=== PATIENT | female | born 1970 | race Caucasian/White ===

== ENCOUNTER 2017-02-06 11:25 | Emergency (ER) | payer OTHER ==
[~2017-02-06] VITALS: Ht 165.1 cm; Wt 135.2 kg
[~2017-02-06 11:25] MED LIST: ADVAIR 250-501 EACH INH; DULOXETINE HCL60 MG PO; GUAIFENESIN AC473 ML PO; LEFLUNOMIDE20 MG PO; PREDNISONE10 MG PO; VENTOLIN HFA18 GM INH; ZITHROMAX250 MG PO
[2017-02-06] MEDS ORDERED: CLONAZEPAM0.5 MG PO (11:44)
[2017-02-06] MEDS ORDERED: LOMAIRA8 MG PO (11:45)
== END 2017-02-06 13:25 | disposition home or self-care (01) ==
LOC: ED 11:25
DX: F41.9 Anxiety disorder, unspecified (principal); J45.909 Unspecified asthma, uncomplicated; Z90.89 Acquired absence of other organs; Z88.2 Allergy status to sulfonamides; Z88.5 Allergy status to narcotic agent; Z88.6 Allergy status to analgesic agent; Z79.899 Other long term (current) drug therapy
CPT/HCPCS: 80053; 80176; 81001; 85025; 99283; G0480

== ENCOUNTER 2018-07-16 18:13 | Emergency (ER) | payer OTHER ==
[~2018-07-16] VITALS: Ht 172.7 cm; Wt 140.6 kg
[~2018-07-16 18:13] MED LIST changes: +CLONAZEPAM0.5 MG PO; +LOMAIRA8 MG PO
[2018-07-16] MEDS ORDERED: ULTRAM50 MG PO (18:44)
[2018-07-16] MEDS ORDERED: PREDNISONE20 MG PO (18:47)
--- NOTE | 2018-07-17 12:20 | EKG ---
[facility] [address] [place], [place] [address] Signed Normal sinus rhythm Normal ECG Confirmed by TAMIKA CORDON DO ([id number]) on 07/17/2018 12:19:55 PM Electronically Signed By: TAMIKA CORDON DO 07/17/18 1220 PATIENT NAME: JAYRO QUEZADA Electrocardiogram DATE OF : 74 PHYSICIAN: TAMIKA CORDON DO REPORT #: [id number] REPORT IS CONFIDENTIAL AND NOT TO BE RELEASED WITHOUT AUTHORIZATION
== END 2018-07-16 21:40 | disposition home or self-care (01) ==
LOC: ED 18:13
DX: J45.901 Unspecified asthma with (acute) exacerbation (principal); B34.9 Viral infection, unspecified; M06.9 Rheumatoid arthritis, unspecified; Z88.2 Allergy status to sulfonamides; Z88.5 Allergy status to narcotic agent; Z88.6 Allergy status to analgesic agent; Z79.52 Long term (current) use of systemic steroids; Z79.899 Other long term (current) drug therapy; E66.9 Obesity, unspecified
CPT/HCPCS: 71045; 80053; 83735; 83880; 84484; 85025; 87502; 93005; 93010; 94640; 96374; 99285-25; J2930

== ENCOUNTER 2019-05-05 07:51 | Emergency (ER) | payer OTHER ==
[~2019-05-05] VITALS: Ht 172.7 cm; Wt 140.6 kg
[~2019-05-05 07:51] MED LIST changes: +PREDNISONE20 MG PO; +ULTRAM50 MG PO
--- OUTSIDE RECORDS SUMMARY | 2019-05-05 07:54 | XMS ---
PreManage Notification: JAYRO QUEZADA Security Crime Victim Specialist Events No recent Security Events currently on file [facility] There are no care providers on record at this time. [facility] has no Care Guidelines for this patient. [facility] VISIT COUNT (12 MO.) 2 [facility] TOTAL 2 NOTE: Visits indicate total known visits. ED/UCC VISIT TRACKING (12 MO.) 05/05/2019 07:52 [facility] [place] TYPE: Emergency COMPLAINT: - LEFT SIDED FACE TINGLING/SWELLING 07/16/2018 18:[address] 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
[2019-05-05] MEDS ORDERED: LEXAPRO20 MG PO (08:02)
[2019-05-05] MEDS ORDERED: ADVAIR 250-501 EACH INH (08:02)
[2019-05-05] MEDS ORDERED: VENTOLIN HFA18 GM ×2 (08:02)
[2019-05-05] MEDS ORDERED: WELLBUTRIN XL150 MG PO (08:03)
[2019-05-05] MEDS ORDERED: ACTEMRA80 MG/4 ML (08:03)
[2019-05-05] MEDS ORDERED: PREDNISONE20 MG PO (08:11)
== END 2019-05-05 08:29 | disposition home or self-care (01) ==
LOC: ED 07:51
DX: T78.1XXA Other adverse food reactions, not elsewhere classified, initial encounter (principal); R21 Rash and other nonspecific skin eruption; J45.909 Unspecified asthma, uncomplicated; Z88.2 Allergy status to sulfonamides; Z88.5 Allergy status to narcotic agent; Z88.6 Allergy status to analgesic agent; Z91.018 Allergy to other foods; Z79.899 Other long term (current) drug therapy
CPT/HCPCS: 99283; J7512; Q0163

== ENCOUNTER 2019-05-07 07:23 | Emergency (ER) | payer OTHER ==
[~2019-05-07] VITALS: Ht 172.7 cm; Wt 140.6 kg
--- OUTSIDE RECORDS SUMMARY | ~2019-05-07 | XMS | Encounter Summary ---
Demographics + + + | Address | [address] | | | [place] [address] | + + + | Home Phone | | + + + | Preferred Language | Unknown | + + + | Marital Status | | + + + | Anabaptist Affiliation | [id number] | + + + | Race | Unknown | + + + | Ethnic Group | Unknown | + + + Author + + + | Author | [facility] | | | and [place] | + + + | Organization | [facility] | | | and [place] | + + + | Address | Unknown | + + + | Phone | Unavailable | + + + Support + + +---------+ + | Name | Relationship | Address | Phone | + + +---------+ + | Apollo Howard | ECON | Unknown | | + + +---------+ + Care Team Providers + +------+ + | Care Research Associate Molecular Biology Name | Role | Phone | + +------+ + | Laisha Quarles NP | PCP | | + +------+ + Encounter Details +--------+ + + + + | Date | Type | Department | Care Team | Description | +--------+ + + + + | 01/22/ | Orders Only | [facility] | Provider, | | | 2018 | | [facility] GENER[facility] OP | [address] | | | | | [address] | [place] | | | | | [address] [place], [place] | [place] [address] | | | | | [address] | | | | | | [phone] | | | +--------+ + + + + Social History + +-------+ +--------+------+ | Tobacco Use | Types | Packs/Day | Years | Date | | | | | Used | | + +-------+ +--------+------+ | Never Smoker | | | | | + +-------+ +--------+------+ + +---+---+---+ | Smokeless Tobacco: | | | | | Never Used | | | | + +---+---+---+ + + +---------+ + | Alcohol Use | Drinks/Week | oz/Week | Comments | + + +---------+ + | Yes | | | 4 times a month | + + +---------+ + + + + | Sex Assigned at | Date Recorded | | | | + + + | Not on file | | + + + + + + + | Job Start Date | Occupation | Industry | + + + + | Not on file | Not on file | Not on file | + + + + + + + + | Travel History | Travel Start | Travel End | + + + + + + | No recent travel history available. | + + documented as of this encounter Plan of Treatment +--------+ + + + + | Date | Type | Specialty | Care Team | Description | +--------+ + + + + | 05/10/ | Clinical | Rheumatology | | | | 2019 | Support | | | | +--------+ + + + + | 05/31/ | Office | Rheumatology | [facility] | | | 2018 | Visit | | BHUM[facility]A Ellis [address] | | | | | [address] | | | | | | [place] [address] | | | | | | [phone] | | | | | | | | +--------+ + + + + | 05/31/ | Clinical | Rheumatology | | | | 2018 | Support | | | | +--------+ + + + + documented as of this encounter Visit Diagnoses Not on filedocumented in this encounter"
--- OUTSIDE RECORDS SUMMARY | ~2019-05-07 | XMS | Encounter Summary ---
Demographics + + + | Address | [address] | | | [place] [address] | + + + | Home Phone | | + + + | Preferred Language | Unknown | + + + | Marital Status | | + + + | Yazidism Affiliation | 1041 | + + + | Race | Unknown | + + + | Ethnic Group | Unknown | + + + Author + + + | Author | [facility] | | | and [place] | + + + | Organization | [facility] | | | and [place] [...] Team Providers + +------+ + | Care Household Appliances Salesperson Name | Role | Phone | + +------+ + PCP | Unavailable | + +------+ + Encounter Details +--------+ + + + + | Date | Type | Department | Care Team | Description | +--------+ + + + + | 12/28/ | Hospital | [facility] | Tierney Owusu MD | | | 2007 - | Encounter | [facility] | [address] | | | | | MEDICAL ONCOLOGY | [place] [address] | | | 01/03/ | | [address] | [phone] | | | 2007 | | [place], [place] | | | | | | [address] | Shanti Parra | | | | | [phone] | | | +--------+ + + + + Social History + +-------+ +--------+------+ | Tobacco Use | Types | Packs/Day | Years | Date | | | | | Used | | + +-------+ +--------+------+ | Never Assessed | | | | | + +-------+ +--------+------+ + + + | Sex Assigned at [...] + + documented as of this encounter Discharge Summaries Saleem Velasco - 05/02/2013 3:07 PM PSTPATIENT NAME: Jayro Beckford Krishna Attending to Sign: Tierney Llamas MD DATE OF ADMISSION: 12/29/2007 AGE/SEX: 37/F DATE OF DISCHAR GE: 01/04/2008 : 1970 DISCHARGE DIAGNOSES: 1. Skin rash. This patient's skin rash is likely the result of a severe drug allergy i n which the patient began to have a perhaps leukemoid reaction. This masqueraded as a poss ible lymphoma versus leukemia. However, extensive further tests, the body of evidence is way fficient to conclude that this is just reactionary. However, followup is recommended to t he patient in order to reassure that this condition is indeed nonmalignant. 2. Staph. aureus bacteremia. This is diagnosed from blood culture. However, evidence o f the degree to which this is present is minimal thus far. The patient had a negative echo which did not show any vegetations on the heart. 3. Rheumatoid arthritis. 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 4. Anxiety and prednisone induced psychosis. This patient was described to be psychoti c while on prednisone. The prednisone was prescribed in response to the patient's severe r gina. DISCHARGE MEDICATIONS: 1. Prednisone 40 mg p.o. daily for days 1 through 7 after discharge. 2. Prednisone 2 0 mg p.o. daily for days 8 through 14 after discharge. 3. Prednisone 20 mg p.o. daily fo r days 15 through 21 and then stop the prednisone. 4. Cymbalta 20 mg one tablet by mouth daily for 30 days with 1 refill. 5. Hydrocerin cream, to be applied to the skin where the rash is present, as needed 6. Desonide 0.05%, topical cream, to be applied twice a day 7. Mupirocin 2% ointment or Bactroban applied twice a day to the affected skin 8. Triamcinolone 0.1% cream, topical cream, applied twice a day 9. Lorazepam 1 mg by mouth twice a day for up to 3 weeks 10. Advair 25 /Fluticasone salmeterol 250/50 one inh alation or one puff daily 11. Zyrtec or cetirizine 5 mg by mouth twice a day. 12. Cefazolin 2 gram IV q. 8 hours times eight days. HOSPITAL COURSE: The patient was transferred from [place], [place], on the December,. She had presented to [facility] in [place] two days prior to admission at [facility], admitted from the emergency dept. there into the hospitalist service for a se mak rash. The rash began one week prior to admission [facility] . It had initially subsi ded slightly. She had stated that she was informed to discontinue use of sulfadiazine and Plaquenil, whi ch she took for rheumatoid arthritis one week prior to admission at [facility]. However, t he patient did not seem to have JAYRO BECKFORD [id number] 01/04/08 DIS IN [id number] DISCHARGE SUMMARY Saleem PEREZ R [facility] MD Ganesh Taylor THIS REPORT IS CONFIDENTIAL AND NOT TO BE RELEASED WITHOUT PROPER AUTHORIZATION. [facility] significant improvement of the rash. Initially she was seen in Emergency room on the week end prior to admission to [facility], at which time she was given some fluid and then sen t home. However, three days later she ended up at the emergency room for the same problem with the rash. However, the rash was getting much worse. She initially described the kylie h as starting on the face and then spreading somewhat inferiorly. She had some severe facia l swelling, closing part of her eyes and around her neck being significantly swollen. On admission to [facility] a number of tests had been drawn and this patient began to have what looked like a leukemic picture. She had a significantly elevated white blood cell co unt into the 30 thousand range. She had abnormal smudge cells on peripheral smear, and a hi gh C reactive protein of 136 and an elevated erythrocyte sedimentation rate also in the 30 s initially. She was initially given fluid hydration and a number of medicines were discon tinued. The patient did not appear to do very well while at [place]. She was subseque ntly transferred to [place] due to the availability of specialists. Upon arrival at [facility] on the , the patient had some mild respirat ory distress and needed about two liters of nasal cannula O2. She was tachycardic in the 1 30s and was febrile with a temperature of about 101.7. A number of consults were called an d were available to se the patient that day or the following day. It was unclear exactly w hat the problem was. However, we did feel that it would have been best for the patient to discontinue all medications at that time, including typical p.r.n. medications. Patient d id not appear to have much response with that. However, the following day, after visiting with the ager operator it was recommended that the patient be started on a 60 mg of oral p rednisone and that this could simply be just a leukemoid reaction. The patient seemed to have a slight improvement over the next day. Bone marrow biopsy was obtained and it was initially read as being, based upon a combination of a flow cytometry and microscopy as, likely a neoplastic process. However, at the time a number of auto antibodies were pending. The patient was initially informed that she had a n underlying malignancy and it would probably need to undergo chemotherapy. The patient was obviously devastated by hearing the news and preparations for chemotherapy were initially done. After further tests and after a PET CT revealed numerous lymph nodes , it became clear that lymph node biopsy would perhaps be more conclusive, as it was believ ed that this could also be just a reactionary state. Due to the patient's body habitus a nd a combination of edema, it became impossible for surgeons to access the patient's lymph nodes. It was therefore concluded that lymph node biopsy would be unable to add much to t his situation. JAYRO BECKFORD [id number] 01/04/08 DIS IN [id number] DISCHARGE SUMMARY Saleem Ansari [facility] Tierney Owusu MD N THIS REPORT IS CONFIDENTIAL AND NOT TO BE RELEASED WITHOUT PROPER AUTHORIZATION. [facility] Further surgical pathology from the patient's bone marrow biopsy showed that the process m ay not have been malignant, based upon the fact that this was a polyclonal and due to the fact that se rum protein electrophoresis did not show a monoclonal increase in immunoglobulin. The diag nosis from the bone marrow study said, "it was a multiple granuloma with plasmocytosis prob ably reactive, peripheral circulating plasma cells that were consistent with a reactive pro cess." After receiving this information, plans for chemotherapy were appropriately stoppe d. The patient was quite happy about the news. However, she was significantly distraught abo ut the fact that she had originally been informed and then as it turned out, misinformed ab out her health. Upon discharge the following day, the patient was doing quite well on the prednisone after having it for 6 days. The rash had significantly subsided with only minimal areas in the legs and some papules on the extensor aspect of her forearms being present. For the most p art her discoloration had resolved over her face and her abdomen. However, due to the fact that the patient had been on such a high dose of prednisone, we are recommending a steroi d taper over the next three weeks. FOLLOWUP: The patient is to follow up in three weeks with Dr. Chandler with rheumatology And in three weeks with Dr. Hernandez with heme-oncology. The patient did receive a skin biops y; however, the suture was removed on the day of discharge without any apparent complicatio ns. 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 We do not believe that this necessarily requires an immediate follow up as the patient is being tapered from her steroids. However, should this return, we do recommend seeing a ager operator promptly. As a result of the patient's blood cultures, which returned a Staph aureus we have sent th e patient home on Cefazolin at 2 gram IV every 8 hours. Patient had completed a 6-day cours e of Cefazolin treatment while at the hospital and she will need to receive another 8 days of treatment when she returns to her home city. The patient was allowed to leave [facility] with a PICC line placed in the right arm. PICC line placement was confirmed with a est x-ray the prior day. Saleem Velasco MD, R1 JAYRO BECKFORD [id number] 01/04/08 DIS IN [id number] [id number] DISCHARGE SUMMARY Saleem gusman ES R [facility] Tierney Owusu MD N THIS REPORT IS CONFIDENTIAL AND NOT TO BE RELEASED WITHOUT PROPER AUTHORIZATION. [facility] Tierney Owusu MD P NQ/raw #[id number] cc: MD Alistair Lee, MD Jeff Bañuelos, MD Saleem Velasco MD,R1 Tierney Llamas MD Digitally authenticated 01/25/08 1700 Saleem Velasco JAYRO BECKFORD [id number] 01/04/08 DIS IN [id number] DISCHARGE SUMMARY Saleem Brentemperatriz gusman R [facility] Tierney Owusu MD N THIS REPORT IS CONFIDENTIAL AND NOT TO BE RELEASED WITHOUT PROPER AUTHORIZATION.Electronica lly signed by Tin, Lidia Conversion at 05/04/2013 1:12 AM PSTdocumented in this enc ounter Plan of Treatment +--------+ + + + + | Date | Type | Specialty | Care Team | Description | +--------+ + + + + | 05/10/ | Clinical | Rheumatology | | | | 2019 | Support | | | | +--------+ + + + + | 05/31/ | Office | Rheumatology | Chel Henry | | | 2019 | Visit | | BHUMIKA Ellis [address] | | | | | | [facility] | | | | | | [place] [address] | | | | | | [phone] | | | | | | | | +--------+ + + + + | 05/31/ | Clinical | Rheumatology | | | | 2019 | Support | | | | +--------+ + + + + documented as of this encounter Procedures + +--------+ + + + | Procedure Name | Priori | Date/Time | Associated Diagnosis | Comments | | | ty | | | | + +--------+ + + + | XR CHEST PA AND | | 01/03/2008 | | Results for this | | LATERAL | | 4:58 PM | | procedure are in the | | | | PDT | | results section. | + +--------+ + + + | CYTOGENETICS | Routin | 12/31/2007 | | Results for this | | SPECIMEN | e | 11:45 AM | | procedure are in the | | | | PDT | | results section. | + +--------+ + + + | HEMATOPATHOLOGY EVAL | Routin | 12/31/2007 | | Results for this | | [facility] | e | 11:45 AM | | procedure are in the | | | | PDT | | results section. | + +--------+ + + + | XR CHEST 2 VIEWS | | 12/29/2007 | | Results for this | | | | 8:15 PM | | procedure are in the | | | | PDT | | results section. | + +--------+ + + + | SURGICAL PATHOLOGY | Routin | 12/29/2007 | | Results for this | | EXAM | e | 12:00 AM | | procedure are in the | | | | PDT | | results section. | + +--------+ + + + documented in this encounter Results XR Chest PA and Lateral (01/03/2008 4:58 PM PDT) + + | Specimen | + + | | + + + + + | Narrative | Performed At | + + + | Exam Performed Location: [facility] DUAL | MISCELANIOUS | | ENERGY CHEST WITH PA AND LATERAL VIEWS CLINICAL INFORMATION: PICC | LAB | | line placement. COMPARISON: 12/29/2007. FINDINGS: There is | | | a right-sided PICC catheter present. The tip of the catheter is not | | | seen beyond the mid superior vena cava. This has not grossly | | | changed since the previous study. The mediastinal contours remain | | | normal. Linear areas of atelectasis are noted within the medial | | | aspect of both lung bases and peripheral aspect of the left mid lung. | | | No pleural effusion or pneumothorax is present. IMPRESSION: | | | 1. Right-sided PICC catheter with its tip at least in the mid | | | superior vena cava. The distal aspect of the catheter is not | | | definitely visualized but appears grossly unchanged in position. 2. | | | Bibasilar areas of atelectasis. S: SQ | | + + + + + | Procedure Note | + + | Tin, Rad Conversion - 04/21/2013 1:48 PM PDT Exam [facility]formed [facility] AND LATERAL VIEWSCLINICAL INFORMATION:PICC | | line placement.COMPARISON:12/29/2007.FINDINGS:There is a right-sided PICC catheter | | present. The tip of the catheteris not seen beyond the mid superior vena cava. This | | has not grosslychanged since the previous study. The mediastinal contours remainnormal. | | Linear areas of atelectasis are noted within the medialaspect of both lung bases and | | peripheral aspect of the left mid lung.No pleural effusion or pneumothorax is | | present.IMPRESSION:1. Right-sided PICC catheter with its tip at least in the | | midsuperior vena cava. The distal aspect of the catheter is notdefinitely visualized | | but appears grossly unchanged in position.2. Bibasilar areas of atelectasis.S: SQ | |FINDINGS: | |There is a right-sided PICC catheter present. The tip of the catheter | |is not seen beyond the mid superior vena cava. This has not grossly | |changed since the previous study. The mediastinal contours remain | |normal. Linear areas of atelectasis are noted within the medial | |aspect of both lung bases and peripheral aspect of the left mid lung. | |No pleural effusion or pneumothorax is present. | | | |IMPRESSION: | | | |1. Right-sided PICC catheter with its tip at least in the mid | |superior vena cava. The distal aspect of the catheter is not | |definitely visualized but appears grossly unchanged in position. | |2. Bibasilar areas of atelectasis. | | | | | |S: SQ | + + + +---------+ + + | Performing | Address | City/State[facility] | Phone Number | | Organization | | | | + +---------+ + + | [facility] | | | [phone] | + +---------+ + + | MISCELANIOUS LAB | | | [phone] | + +---------+ + + Cytogenetics Specimen (12/31/2007 11:45 AM PDT) + + | Specimen | + + | | + + + + + | Narrative | Performed At | + + + | CYTOGENETICS REPORT Case #: [id number] Date | [place] [facility] | | Taken: 12/31/2007 Date Received: 01/01/2008 Physician: ALBARO HERNANDEZ | | | Specimen Type: Bone Marrow Aspirate Clinical Indication: r/o | | | Lymphoma Result: 46,XX[20] Normal Female Karyotype | | | Interpretation: No clonal cytogenetic abnormalities were detected | | | in cells from short term pha/IL-2 stimulated and unstimulated bone | | | marrow aspirate cultures at the resolution obtained. | | | Cytogenetic Analysis Summary: Number of Cells Analyzed: 20 | | | Number of Cultures used for Analysis: 2 Number | | | of Cells Karyotyped at Microscope: 14 Number of Hard | | | Copy Karyotypes: 6 Extra Cells examined/scored: none | | | Banding Level: 350-450 | | | Banding Method: GTW/G Sy Ruiz M.D., [facility] | | | 01/09/2008 Electronic Signature [facility] Manny Coronado M.D., | | | Director [address] [place] [address] or | | | | | + + + + + + + + | Performing | Address | City/State/Zipcode | Phone Number | | Organization | | | | + + + + + | [facility] | [address] | [place] [address] | | | [facility] | | | | | [facility] | | | | + + + + + | [facility] | | | | + + + + + Hematopathology Batsheva COE (12/31/2007 11:45 AM PDT) + + | Specimen | + + | | + + + + + | Narrative | Performed At | + + + | HEMATOPATHOLOGY REPORT | [facility] | | Date Taken: 12/31/2007 Date Received: 12/31/2007 | | | Completed: 01/03/2008 Physician: ALBARO HERNANDEZ DIAGNOSIS: Bone | | | marrow study demonstrating multiple granulomata with plasmacytosis, | | | probably reactive; peripheral circulating plasma cells consistent | | | with a reactive process (see comment). 0 COMMENT: Both the | | | marrow and peripheral blood demonstrate a remarkable increase in the | | | percentage of plasma cells, but without morphologic findings that | | | allow a definitive diagnosis of a plasma cell neoplasm. This is | | | associated with flow cytometric studies which confirm the identity of | | | these cells as plasma cells, but again did not identify abnormal | | | antigen expression. Of note, cytoplasmic studies performed on the | | | peripheral blood demonstrate an appropriate mix of kappa and lambda | | | light chain in plasma cells. Also, serum protein electrophoresis | | | demonstrates only a polyclonal increase in immunoglobulin without | | | evidence of a monoclonal protein. The etiology of both the | | | granulomata and the circulating and marrow plasma cells is not clear | | | from the current study. Granulomata are relatively nonspecific and | | | may be seen with a variety of infectious processes as well as | | | autoimmune disorders. The remarkable plasmacytosis is also | | | unexplained but again may be seen with autoimmune phenomena. | | | Clinical correlation is required. Consideration of immunoglobulin | | | gene rearrangement studies or repeat evaluation if the process does | | | not resolve may be useful. But at this time, no findings are | | | present that allow a diagnosis of a neoplastic process. | | | Adama More Jr., MD PRIOR REPORTS: BIOPSY/CLOT | | | DESCRIPTION: The bone marrow biopsy measures approximately 20 mm in | | | length. Trabecular bone is present and appears normal. No | | | nonhematopoietic tumor cells are identified. Overall cellularity is | | | approximately 80%. Throughout the specimen are small granulomata | | | consisting of plump macrophages and occasional giant cells with a | | | lymphoplasmacytic association. Megakaryocytes are very prominent | | | within the specimen but appear normal morphologically without | | | clustering or abnormal forms. Myeloid cells demonstrate maturation | | | to mature polys. No lymphoid aggregates are seen. Plasma cells | | | are diffusely increased without large aggregates identified. The | | | accompanying clot section confirms the findings as described in the | | | biopsy. Stains for fungus and TB performed on both the clot and | | | biopsy are negative. Immunostains performed on both the clot | | | and biopsy demonstrate an increased number of CD138 positive plasma | | | cells as suggested by morphology and histology. No large | | | collections of plasma cells are identified; however, there are | | | multiple small aggregates present. No increase in CD79a or CD20 | | | positive B lymphocytes is identified. CD3 stains only scattered | | | individual cells. Stains for both kappa and lambda identify | | | staining of an approximately equal number of plasma cells within the | | | specimen. [facility] [address], [place] [id number] [phone]) | | | [phone] or Testing performed at: [place] | | | [facility] Manny Coronado M.D., | | | Director [address] [place] [address] [address] [place] [address] Phone: | | | | | + + + + + + + + | Performing | Address | City/State/[facility] | Phone Number | | Organization | | | | + + + + + | [facility] | [address] | [place] [address] | | | [facility] | | | | | [facility] | | | | + + + + + | [facility] | | | | + + + + + XR Chest 2 VW (12/29/2007 8:15 PM PDT) + + | Specimen | + + | | + + + + + | Narrative | Performed At | + + + | Exam Performed Location: [facility] AND | MISCELANIOUS | | LATERAL CHEST CLINICAL INFORMATION: Fever and rash. | LAB | | COMPARISON: None. FINDINGS: The lungs are well expanded. There | | | is a right-sided PICC line with the tip difficult to see. The | | | heart size is normal. Streaky opacity in the left lung base suggest | | | atelectasis. No focal consolidation. No pleural effusion or | | | pneumothorax. IMPRESSION: Minimal left basilar atelectasis. No | | | focal consolidation. S: SQ | | + + + + + | Procedure Note | + + | Tin, Rad Conversion - 04/21/2013 1:53 PM PDT Exam Performed Location: [facility] | | at [facility] AND LATERAL CHESTCLINICAL INFORMATION:Fever and | | rash.COMPARISON:None.FINDINGS:The lungs are well expanded. There is a right-sided PICC | | line withthe tip difficult to see. The heart size is normal. Streaky opacityin the left | | lung base suggest atelectasis. No focal consolidation.No pleural effusion or | | pneumothorax.IMPRESSION:Minimal left basilar atelectasis. No focal consolidation.S: SQ | | | |COMPARISON: | |None. | | | |FINDINGS: | |The lungs are well expanded. There is a right-sided PICC line with | |the tip difficult to see. The heart size is normal. Streaky opacity | |in the left lung base suggest atelectasis. No focal consolidation. | |No pleural effusion or pneumothorax. | | | |IMPRESSION: | |Minimal left basilar atelectasis. No focal consolidation. | | | | | |S: SQ | + + + +---------+ + + | Performing | Address | City/State/Zipcode | Phone Number | | Organization | | | | + +---------+ + + | [facility] | | | [phone] | + +---------+ + + | M[facility] LAB | | | [phone] | + +---------+ + + Surgical Pathology Exam (12/29/2007 12:00 AM PDT) + + | Specimen | + + | | + + + + + | Narrative | Performed At | + + + | SURGICAL PATHOLOGY REPORT | [facility] | | Date Taken: 12/29/2007 Date Received: 01/01/2008 | | | Completed: 01/02/2008 Physician: SHAVON STANLEY Copy to: MARK Ramirez | | | [place] DIAGNOSIS: Skin, right anterior thigh, punch biopsy: | | | Lichenoid dermatitis with lymphocytic vasculitis. See comment. 0 | | | COMMENT: The differential diagnosis includes pigmented purpuric | | | dermatosis, pityriasis lichenoides chronicus, viral or drug | | | reaction and less likely connective tissue disorder. There is no | | | evidence of papillary dermal edema for polymorphous light eruption, | | | however this may still be in the differential diagnosis. There is | | | no evidence of an acute vasculitis. Clinical correlation is | | | recommended. This case has been reviewed and dictated by | | | Mehdi, Board Certified Dermatopathologist. LUCAS Brown | | | MEHDI Electronic signature PRIOR REPORTS: [id number], | | | [id number] GROSS DESCRIPTION: The specimen labeled and designated | | | "Beckford, right anterior thigh" is received in formalin and consists of | | | a 0.4 cm in diameter biopsy of stern skin with the underlying tissue | | | extending to a 0.5 cm depth. The margins are identified with ink. The | | | specimen is bisected and submitted "A1". The Histology | | | requisition indicates "immunofluorescence studies to be requested", | | | however no specimen was received in Tom fixative, and only one | | | specimen was received in formalin. ([place]) [phone] [id number] | | | [facility] [address] [place] [address] or | | | Testing performed at: [facility] | | | [facility] Manny Coronado M.D., Director [facility] [address] | | [address] [place] [address] | | + + + + + + + + | Performing | Address | City/State[facility] | Phone Number | | Organization | | | | + + + + + | [facility] | [address] | [place] [address] | | | [facility] | | | | | LABORATORY | | | | + + + + + | [facility] | | | | + + + + + documented in this encounter Visit Diagnoses Not on filedocumented in this encounter
--- OUTSIDE RECORDS SUMMARY | ~2019-05-07 | XMS | Encounter Summary ---
Demographics + + + | Address | [address] | | | [place] [address] | + + + | Home Phone | | + + + | Preferred Language | Unknown | + + + | Marital Status | | + + + | Temple Affiliation | 1041 | + + + | Race | Unknown | + + + | Ethnic Group | Unknown | + + + Author + + + | Author | [facility] | | | and [place] | + + + | Organization | [facility] | | | and [...] Team Providers + +------+ + | Care Licensed Loan Officer Assistant Name | Role | Phone | + +------+ + | Laisha Quarles NP | PCP | | + +------+ + Encounter Details +--------+ + + + + | Date | Type | Department | Care Team | Description | +--------+ + + + + | 01/22/ | Orders Only | [facility] | Provider, | | | 2018 | | SYSTEM GENERIC OP | [address] | | | | | [address] | [place] | | | | | [address] [place], [place] | [place] [address] | | | | | [address] | | | | | | [phone] | | | +--------+ + + + [...] 2018 | Visit | | BHUMIKA Ellis [address] | | | | | | [place] | | | | | | [place] [address] | | | | | | [phone] | | | | | | | | +--------+ + + + + | 05/31/ | Clinical | Rheumatology | | | | 2018 | Support | | | | +--------+ + + + + documented as of this encounter Visit Diagnoses Not on filedocumented in this encounter"
--- OUTSIDE RECORDS SUMMARY | ~2019-05-07 | XMS | Encounter Summary ---
Demographics + + + | Address | [address] | | | [place] [address] | + + + | Home Phone | | + + + | Preferred Language | Unknown | + + + | Marital Status | | + + + | Buddhist Affiliation | 1041 | + + + | Race | Unknown | + + + | Ethnic Group | Unknown | + + + Author + + + | Author | [facility] | | | and [place] | + + + | Organization | [facility] | | | and [place] | [...] Team Providers + +------+ + | Care Print Production Manager Name | Role | Phone | + +------+ + PCP | Unavailable | + +------+ + Encounter Details +--------+ + + + + | Date | Type | Department | Care Team | Description | +--------+ + + + + | 01/12/ | Hospital | [facility] | [place], | | | 2007 | Encounter | MED CTR MED ONC | Davina Segura MD [address] | | | | | [address] [place] | [address] [place] | | | | | [place] [address] | [place] [address] | | | | | [phone] | [phone] | | | | | | | [...] | 05/31/ | Office | Rheumatology | Henry, Chel | | | 2019 | Visit | | BHUMIKA Ellis [address] | | | | | | [place] | | | | | | [place] [address] | | | | | | [phone] | | | | | | | | +--------+ + + + + | 05/31/ | Clinical | Rheumatology | | | | 2018 | Support | | | | +--------+ + + + + documented as of this encounter Visit Diagnoses Not on filedocumented in this encounter"
--- OUTSIDE RECORDS SUMMARY | ~2019-05-07 | XMS | Encounter Summary ---
Demographics + + + | Address | [address] | | | [place] [address] | + + + | Home Phone | | + + + | Preferred Language | Unknown | + + + | Marital Status | | + + + | Jew Affiliation | 1041 | + + + | Race | Unknown | + + + | Ethnic Group | Unknown | + + + Author + + + | Author | [facility] | | | and [place] | + + + | Organization | [facility] | | | [...] Team Providers + +------+ + | Care Funds Development Director Name | Role | Phone | + +------+ + | Laisha Quarles NP | PCP | | + +------+ + Reason for Visit +--------+ + | Reason | Comments | +--------+ + | Apnea | | +--------+ + Encounter Details +--------+---------+ + + + | Date | Type | Department | Care Team | Description | +--------+---------+ + + + | 08/19/ | Office | [facility] | Blair Guillen PA | ROMA on CPAP (Primary | | 2015 | Visit | SLEEP DISORDER [address] | [address] | Dx) | | | | [address] [place] | [place] | | | | | [place] [address] | [address] | | | | | [phone] | | | +--------+---------+ + + + Social History + +-------+ [...] + + documented as of this encounter Last Filed Vital Signs + + + + + | Vital Sign | Reading | Time Taken | Comments | + + + + + | Blood Pressure | 124/82 | 08/19/2014 3:21 PM | | | | | PST | | + + + + + | Pulse | 100 | 08/19/2014 3:21 PM | | | | | PST | | + + + + + | Temperature | - | - | | + + + + + | Respiratory Rate | 16 | 08/19/2014 3:21 PM | | | | | PST | | + + + + + | Oxygen Saturation | 95% | 08/19/2014 3:21 PM | | | | | PST | | + + + + + | Inhaled Oxygen | - | - | | | Concentration | | | | + + + + + | Weight | 137.9 kg (304 lb) | 08/19/2014 3:21 PM | | | | | PST | | + + + + + | Height | - | - | | + + + + + | Body Mass Index | 49.82 | 06/05/2014 10:51 AM | | | | | PST | | + + + + + documented in this encounter Progress Notes Sun Tiwari, Master of Arts - 08/19/2014 3:19 PM PSTFormatting of this note might be di fferent from the original. 08/19/14 [address] Depression Inventory-II Depression Score 7 - Minimal depression Insomnia Severity Index Insomnia Severity Index 8 [place] Sleepiness Scale Sitting and reading 1 Watching TV 2 Sitting, inactive in a public place (e.g. a theatre or a meeting) 1 As a passenger in a car for an hour without a break 2 Lying down to rest in the afternoon when circumstances permit 3 Sitting and talking to someone 0 Sitting quietly after a lunch without alcohol 1 In a car, while stopped for a few minutes in traffic 0 Total score 10 SF-36v2 Score PF 44.41 RP 29.91 BP 37.18 GH 25.76 VT 48.97 SF 35.03 RE 24.78 MH 35.93 PCS 38.49 MCS 33.34 Blair Antunez PA - 3:16 PM PST Subjective: Patient ID: Radha Heck is a 43 y.o. female. HPI last office visit was: 06/17/2014 date of split-night polysomnography: 06/11/2014 AHI: 108.5 RDI: 108.5 O2%: 67% with 35.5 minutes below 88% Machine type: ResMed AirSense 10 with nasal pillows obtained from: [employer] in [place] pressure: 12-20 cm 95%: 17.1 cm maximum: 19.0 cm Nights using CPAP: 64/64 % of nights >4 hours: 96% average usage (all nights): 7:45 average usage (nights used): 7:45 AHI: 2.4 Radha comes in for CPAP compliance. She continues to wear her CPAP on a nightly basis for t he duration of her sleep. She and her are both sleeping much better. She is sleepi ng less and feeling more rested. She no longer naps during the day and has more energy. Paola walsh has started exercising and has noticed a significant improvement in her stamina. She is w orking to lose weight and is hopeful this increase in energy will help her. Her only questi on is regarding her equipment. We discussed when she is able to replace each item. We also discussed the recommended cleaning schedule for her equipment. I have discussed the download and results of the paperwork in detail. She is unchanged or improved in nearly all categories, with no areas of concern. The download shows that her sl eep apnea is well controlled, with an AHI of 2.4. It also shows that her leaks are well con trolled. It shows that she is wearing her CPAP >4 hours for 96% of the nights during the 64 nights. Review of Systems Objective: Physical Exam Assessment: Problem #1: OBSTRUCTIVE SLEEP APNEA (327.23) This is well controlled with CPAP. Her CPAP compliance is going well. She is wearing her CPAP >4 hours for 96% of the nights during the last 64 nights. Plan: She is to continue with CPAP indefinitely. We have faxed a prescription to [facility] in [place] to convert her CPAP/BiPAP to purchase. I have recommended that she touch base with [facility] twice per year to ensure that her equipment is satisfactory. I will follow up again in 1 year, sooner prn. At that time we will reassess with all appro priate paperwork. Fifteen minutes were spent [id number], with the majority of time spent in counseling. Blair Guillen PA-C cc: JOHAN Chiu documented in this enco unter Plan of Treatment +--------+ + + + [...] 2018 | Visit | | BHUMIKA Ellis [address] | | | | | | [place] | | | | | | [place] [address] | | | | | | [phone] | | | | | | | | +--------+ + + + + | 05/31/ | Clinical | Rheumatology | | | | 2018 | Support | | | | +--------+ + + + + documented as of this encounter Visit Diagnoses + + | Diagnosis | + + | ROMA on CPAP - Primary Obstructive sleep apnea (adult) (pediatric) | + + documented in this encounter"
--- OUTSIDE RECORDS SUMMARY | ~2019-05-07 | XMS | Encounter Summary ---
Demographics + + + | Address | [address] | | | [place] [address] | + + + | Home Phone | | + + + | Preferred Language | Unknown | + + + | Marital Status | | + + + | Episcopal Affiliation | 1041 | + + + | Race | Unknown | + + + | Ethnic Group | Unknown | + + + Author + + + | Author | [facility] | | | and [place] | + + + | Organization | [facility] | | | and [place] [...] Team Providers + +------+ + | Care Estate Planning Counselor Name | Role | Phone | + +------+ + | Laisha Quarles NP | PCP | | + +------+ + Reason for Visit +--------+ + | Reason | Comments | +--------+ + | Other | sleep results | +--------+ + Encounter Details +--------+---------+ + + + | Date | Type | Department | Care Team | Description | +--------+---------+ + + + | 12/18/ | Office | [facility] | Davon Brunner | Low ferritin | | 2014 | Visit | SLEEP DISORDER [address] | (Primary Dx); ROMA | | | | [address] [place] | [address] [place] | (obstructive sleep | | | | [place] [address] | [place] [address] | apnea); Restless | | | | [phone] | [phone] | legs syndrome | | | | | | | +--------+---------+ + + + [...] + + + | Blood Pressure | 152/78 | 06/13/2014 2:34 PM | | | | | PST | | + + + + + | Pulse | 117 | 06/13/2014 2:34 PM | | | | | PST | | + + + + + | Temperature | - | - | | + + + + + | Respiratory Rate | 18 | 06/13/2014 2:34 PM | | | | | PST | | + + + + + | Oxygen Saturation | 95% | 06/13/2014 2:34 PM | | | | | PST | | + + + + + | Inhaled Oxygen | - | - | | | Concentration | | | | + + + + + | Weight | 136.9 kg (301 lb | 06/13/2014 2:34 PM | | | | 11.2 oz) | PST | | + + + + + | Height | - | - | | + + + + + | Body Mass Index | 49.44 | 06/05/2014 10:51 AM | | | | | PST | | + + + + + documented in this encounter Patient Instructions Patient Instructions Davon Brunner Jr., MD - 06/13/2014 2:56 PM PSTFormatting of this n ote might be different from the original. What Are Snoring and Sleep Apnea? If you ve ever had a stuffed-up nose, you know the feeling of trying to breathe through a very narrow passageway. This is what happens in your throat when you snore. While you sleep , structures in your throat partially block your air passage, making the passage narrow and hard to breathe through. If the entire passage becomes blocked and you can t breathe at al l, you have sleep apnea. Snoring If your throat structures are too large or the muscles relax too much during sleep, the air passage may be partially blocked. As air from the nose or mouth passes around this blockage , the throat structures vibrate, causing the familiar sound of snoring. At times, this sound can be so loud that snorers wake up others, or even themselves, during the night. Snoring g ets worse as more and more of the air passage is blocked. Sleep Apnea If the structures completely block the throat, air can t flow to the lungs at all. This i s called apnea (meaning no breathing ). Since the lungs aren t getting fresh air, the brain tells the body to wake up just enough to tighten the muscles and unblock the air pass age. With a loud gasp, breathing begins again. This process may be repeated over and over ag ain throughout the night, making your sleep fragmented with a senior business intelligence analyst stage of sleep. Even t bubba you do not remember waking up many times during the night to a senior business intelligence analyst sleep, you feel tired the next day. The lack of sleep and fresh air can also strain your lungs, heart, and other organs, leading to problems such as high blood pressure, heart attack, or stroke. Air may not be able to move freely past a deviated septum or swollen turbinates. Problems in the Nose and Jaw Problems in the structure of the nose may obstruct breathing. A crooked (deviated) septum o r swollen turbinates can make snoring worse or lead to apnea. Also, a receding jaw may make the tongue sit too far back, so it s more likely to block the airway when you re asleep. [id number] [place] [address]. All righ ts reserved. This information is not intended as a substitute for professional medical care. Always follow your healthcare professional's instructions. documented in this encounter Progress Notes Davon Brunner Jr., MD - 06/13/2014 2:40 PM PSTThe patient comes in for results of her s plit-night PSG. My interpretation of her sleep study, which I have reviewed with her, is as follows: Split-Night Polysomnogram/Positive Airway Pressure Titration Report on Radha Heck 1 08/12/2013 Clinical Information: Radha Heck is a 43 y.o. female who underwent nocturnal polyso mnography using a "Split-Night" Protocol on 06/11/2014 on referral from [facility] because of sleep fragmentation, fatigue, and possible Obstructive Sleep Apnea. 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 Technical Information: Please see technical data stored as Polysomnography under "Media" se ction in the [facility] EMR. Definitions (The AASM Manual for the Scoring of Sleep and Associated Events, Version 2.0; 2 012): Apnea:There is a drop in the peak signal excursion by 90% or greater of pre-event baseline using an oronasal thermal sensor (diagnostic study), PAP device flow (titration study), or a n alternative apnea sensor (diagnostic study); the duration of the 90% or greater drop in se nsor signal is 10 seconds or longer. Obstructive Apnea: Event associated with continued or increased inspiratory effort througho ut the entire period of absent airflow. Central Apnea: Event associated with absent inspiratory effort throughout the entire period of absent airflow. Mixed Apnea: Event associated with absent inspiratory effort in the initial portion of the event followed by resumption of inspiratory effort during the second portion of the event. Hypopnea: The peak signal excursions drop by 30% or more of pre-event baseline using nasal pressure (diagnostic study), PAP device flow (titration study), or an alternative hypopnea s ensor (diagnostic study). The duration of the 30% or greater drop in signal excursion must l ast for 10 seconds or longer. The event is associated with a 3% or greater oxygen desaturati on from pre-event baseline or the event is associated with an arousal. Respiratory Event Related Arousal: A sequence of breaths lasting 10 seconds or longer choco cterized by increasing respiratory effort or by flattening of the inspiratory portion of the nasal pressure (diagnostic study) or PAP device flow (titration study) waveform leading to arousal from sleep when the sequence of breaths does not meet criteria for an apnea or hypop duncan. The study was conducted in two parts. The first 183.6 minutes of study time was spent as a diagnostic study and the second 470.9 was spent with the patient undergoing positive airway titration. DIAGNOSTIC PORTION OF THE EVENING Sleep Architecture: Lights out was recorded at 2259 hundred hours on 06/11/2014 and lights on was recorded at 0954 hundred hours on 06/12/2014. The latency to sleep onset was normal a t 12 minutes. The patient slept for 131 minutes out of 183.6 minutes of diagnostic study paula e resulting an a sleep efficiency that was low at 71.4 %. The following were the percentages of the various sleep stages recorded during the diagnostic portion of the evening: N1 3.8%, N2 96.2%, N3 0%, and REM 0. Sleep was severely fragmented; the Arousal Index was 111.8 duri ng the diagnostic portion of the evening. Sleep in the following body positions were recorded during the diagnostic portion of the ev enin.3% left lateral decubitus, 14.1% right lateral decubitus, and 36.5% supine. Cardiopulmonary Monitoring: During the diagnostic portion of the evening, the heart rate av eraged in the 90's beats per minute. Moderate rate variability was noted. The rhythm was sin us tachycardia. During the diagnostic portion of the evening, there were 65 obstructive apneas, 0 mixed tenon machine operator eas, 0 central apneas, 172 hypopneas, and 0 Respiratory Effort Related Arousals (RERA's). Th e Respiratory Disturbance Index (RDI) was elevated at 108.5; the Apnea-Hypopnea Index was el evated at 108.5; the Apnea Index (AI) was elevated at 29.8. The respiratory events were not positional. The le oxygen saturation was 67% and the patient spent 35.5 minutes with an oxygen satur ation of less than 88%. ETCO2 was not elevated. The night technologist at this point appropriately made a diagnosis of Obstructive Sleep Ap duncan. The patient was awakened and positive airway pressure was instituted. TREATMENT PORTION OF THE EVENING: During the 470.9 of treatment time, the patient slept for 446.5 minutes for a sleep efficie ncy of 94.8 which was markedly better than the sleep efficiency seen during the diagnostic p ortion of the night. Sleep architecture showed marked improvement compared to the sleep arch itecture during the diagnostic portion of the evening. There was a huge "rebound" of REM sle ep. The patient was titrated to Positive Airway Pressure of 14cm which resulted in a AHI of 1.1 . ROMA was actually well controlled with CPAP above 10cm but light snoring persisted. Oxygen saturation improved on CPAP but did not entirely normalize. Limb Movement Monitoring: There were 310 Periodic Limb Movements of which 14 were associate d with arousals; the PLMS Arousal Index was normal at 1.5, when averaged for the entire even ing. The PLMS improved significantly with CPAP. Interpretation: This Split-Night Polysomnogram is abnormal secondary to: Severe Obstructive Sleep Apnea is diagnosed and was associated with severe and sustained ox ygen desaturation and severe sleep fragmentation. CPAP above 10cm controlled ROMA and dramatically improved sleep architecture. Oxygen saturat ion improved but did not completely normalize. Periodic Limb Movements were present but improved dramatically after the institution of CPA P. Suggestions: 1. The principles of sleep hygiene should be reviewed with the patient. 2. Auto CPAP 10-20 cm is advised. 3. Pulse oximetry should be checked after a couple of weeks of therapy. 4. A ferritin level should be checked. If the ferritin level is less than 50, iron suppleme ntation should be considered to raise the ferritin to above 50. This may help with PLMS. Onc e the ferritin level is above 50, pharmacologic therapy of PLMS/RLS should be considered if they are felt to be clinically significant. BP 152/78 | Pulse 117 | Resp 18 | Wt 136.85 kg (301 lb 11.2 oz) | SpO2 95% A: ROMA: The patient has clinically significant and very severe ROMA. I've discussed this wit h the patient again. I've discussed treatment options (weight loss, CPAP, Dental Appliance, surgery) again and I am advising a trial of CPAP therapy. Typically dental appliances are no t very effective for severe ROMA. Weight loss is encouraged which will help but CPAP should b e started.. The mechanisms of action of CPAP in treating ROMA were discussed in detail with t he patient. I've discussed desensitization techniques as well as some imagery techniques anitha t can be helpful. I've discussed the use of heated humidity. And I've discussed our PAP Comp liance Clinic. RLS/PLMS: Note that the ferritin is low normal but less than 50. I am advising FeS04 P: Resmed AirSense 10 autoset CPAP 12-20cm is prescribed (I think that higher minimum press ures would be better than what I recommended on my PSG interpretation). F/u early next after getting CPAP in PAP Compliance Clinic - at that time nocturnal pulse o ximetry on CPAP should be checked. FeS)4 325mg bid prescribed. Today, 25 minutes was spent face to face with the patient; the majority of time was spent c sydni regarding ROMA, CPAP, and RLS. documented in th is encounter Plan of Treatment +--------+ + + [...] 2018 | Visit | | BHUMIKA Ellis [address] | | | | | | [place] | | | | | | [place] [address] | | | | | | [phone] | | | | | | | | +--------+ + + + + | 05/31/ | Clinical | Rheumatology | | | | 2018 | Support | | | | +--------+ + + + + documented as of this encounter Visit Diagnoses + + | Diagnosis | + + | Low ferritin - Primary Other nonspecific findings on examination of blood | + + | ROMA (obstructive sleep apnea) Obstructive sleep apnea (adult) (pediatric) | + + | Restless legs syndrome Restless legs syndrome (RLS) | + + documented in this encounter
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
--- OUTSIDE RECORDS SUMMARY | ~2019-05-07 | XMS | Encounter Summary ---
Demographics + + + | Address | [address] | | | [place] [address] | + + + | Home Phone | | + + + | Preferred Language | Unknown | + + + | Marital Status | | + + + | Mosque Affiliation | [phone] | + + + | Race | Unknown | + + + | Ethnic Group | Unknown | + + + Author + + + | Author | [facility] | | | and [place] | + + + | Organization | [facility] | | | and [place] [...] Team Providers + +------+ + | Care Drying Can Worker Name | Role | Phone | + +------+ + | Laisha Quarles NP | PCP | | + +------+ + Encounter Details +--------+ + + + + | Date | Type | Department | Care Team | Description | +--------+ + + + + | 01/05/ | Orders Only | [facility] | [facility] | | | 2018 | | [address] | [place] [address] | | | | [place] | [facility] | | | | | [address] | [place] [address] | | | | | [phone] | [phone] | | | | | | | [...] 2018 | Visit | | [place] [address] | | | | | | [facility] | | | | | | [place] [address] | | | | | | [phone] | | | | | | | [...] | + +--------+ + + + | GISSELL LEBRON | Routin | 01/05/2018 | | Results for this | | | e | 9:04 AM | | procedure are in the | | | | PDT | | results section. | + +--------+ + + + | COMPREHENSIVE | Routin | 01/05/2018 | | Results for this | | METABOLIC PANEL | e | 9:03 AM | | procedure are in the | | | | PDT | | results section. | + +--------+ + + + documented in this encounter Results Quantiferon Gold (01/05/2018 9:04 AM PDT) + + + + + + | Component | Value | Ref Range | Performed | Pathologist | | | | | At | Signature | + + + + + + | Quantiferon | NegativeComment: | | EXTERNAL | | | TB Gold | Reference range: | | LAB | | | | NegativeThe specimen | | | | | | received for QuantiFERON | | | | | | testing was incubated | | | | | | by theordering | | | | | | institution. Specific | | | | | | procedures outlined in | | | | | | ourDirectory of Services | | | | | | and in the package | | | | | | insert for the | | | | | | QuantiFERONGold (In | | | | | | Tube) test must be | | | | | | followed to enable for | | | | | | proper stimulationof | | | | | | cells for the production | | | | | | of interferon gamma. | | | | + + + + + + | QUANTIFERON | (See Below)Comment: To | | EXTERNAL | | | .CRITERIA | be considered positive a | | LAB | | | | specimen should have a | | | | | | TB Ag minus Nilvalue | | | | | | greater than or equal to | | | | | | 0.35 IU/mL and in | | | | | | addition the TB Agminus | | | | | | Nil value must be | | | | | | greater than or equal to | | | | | | 25% of the Nilvalue. | | | | | | There may be | | | | | | insufficient information | | | | | | in these values | | | | | | todifferentiate between | | | | | | some negative and some | | | | | | indeterminate | | | | | | testvalues. | | | | + + + + + + | TB 1 | 0.02 | [iU]/mL | EXTERNAL | | | Antigen | | | LAB | | | Minus NIL | | | | | + + + + + + | Comment | 0.01 | [iU]/mL | EXTERNAL | | | | | | LAB | | + + + + + + | MITOGEN | 9.81 | [iU]/mL | EXTERNAL | | | | | | LAB | | + + + + + + | TB Ag minus | 0.01 | [iU]/mL | EXTERNAL | | | NIL | | | LAB | | + + + + + + | Interpretat | (See Below)Comment: The | | EXTERNAL | | | ion: | QuantiFERON TB Gold (in | | LAB | | | | Tube) assay is intended | | | | | | for use as an aidin the | | | | | | diagnosis of TB | | | | | | infection. Negative | | | | | | results suggest | | | | | | thatthere is no TB | | | | | | infection. In patients | | | | | | with high suspicion | | | | | | ofexposure, a negative | | | | | | test should be repeated. | | | | | | A positive | | | | | | testindicates infection | | | | | | with Mycobacterium | | | | | | tuberculosis. | | | | | | Amongindividuals without | | | | | | tuberculosis infection, | | | | | | a positive test may | | | | | | bedue to exposure to M. | | | | | | kansabuffyi, M. yamileti or | | | | | | M. marinum. On | | | | | | theInternet, go to | | | | | | cdc.gov/tb for further | | | | | | details. | | | | + + + + + + + + | Specimen | + + | | + + + +---------+ + + | Performing | Address | City/State/Zipcode | Phone Number | | Organization | | | | + +---------+ + + | EXTERNAL LAB | | | | + +---------+ + + Comprehensive Metabolic Panel (01/05/2018 9:03 AM PDT) + + + + + + | Component | Value | Ref Range | Performed | Pathologist | | | | | At | Signature | + + + + + + | Na | 138 | 135 - 145 | EXTERNAL | | | | | mmol/L | LAB | | + + + + + + | K | 4.2 | 3.5 - 4.9 | EXTERNAL | | | | | mmol/L | LAB | | + + + + + + | Cl | 101 | 99 - 109 mmol/L | EXTERNAL | | | | | | LAB | | + + + + + + | CO2 | 29 | 23 - 32 mmol/L | EXTERNAL | | | | | | LAB | | + + + + + + | Anion Gap | 12 | 5 - 20 mmol/L | EXTERNAL | | | | | | LAB | | + + + + + + | Glucose, | 172 (H) | 65 - 99 mg/dL | EXTERNAL | | | Fasting | | | LAB | | + + + + + + | BUN | 12 | 8 - 25 mg/dL | EXTERNAL | | | | | | LAB | | + + + + + + | Creatinine | 0.7 | 0.50 - 1.00 | EXTERNAL | | | | | mg/dL | LAB | | + + + + + + | BUN/Creatin | 17 | | EXTERNAL | | | ine Ratio | | | LAB | | + + + + + + | Calcium | 9.5 | 8.5 - 10.5 | EXTERNAL | | | | | mg/dL | LAB | | + + + + + + | Protein, | 7.0 | 6.3 - 8.2 g/dL | EXTERNAL | | | Total | | | LAB | | + + + + + + | Albumin | 3.2 (L) | 3.6 - 5.0 g/dL | EXTERNAL | | | | | | LAB | | + + + + + + | Globulin | 3.8 | 1.3 - 4.9 g/dL | EXTERNAL | | | | | | LAB | | + + + + + + | A/G Ratio | 0.8 (L) | 1.0 - 2.4 | EXTERNAL | | | | | | LAB | | + + + + + + | Bilirubin | 0.5 | 0.1 - 1.5 mg/dL | EXTERNAL | | | Total | | | LAB | | + + + + + + | ALP, | 121 (H) | 35 - 115 U/L | EXTERNAL | | | External | | | LAB | | + + + + + + | AST | 19 | 10 - 45 U/L | EXTERNAL | | | | | | LAB | | + + + + + + | ALT | 41 | 10 - 65 U/L | EXTERNAL [...] | | | + +---------+ + + documented in this encounter Visit Diagnoses Not on filedocumented in this encounter"
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
--- OUTSIDE RECORDS SUMMARY | ~2019-05-07 | XMS | Encounter Summary ---
Demographics + + + | Address | [address] | | | [place] [address] | + + + | Home Phone | | + + + | Preferred Language | Unknown | + + + | Marital Status | | + + + | Taoism Affiliation | 1041 | + + + | Race | Unknown | + + + | Ethnic Group | Unknown | + + + Author + + + | Author | [facility] | | | and [place] | + + + | Organization | [facility] | | | and [place] [...] Team Providers + +------+ + | Care Doughnut Maker Name | Role | Phone | + +------+ + | Laisha Quarles NP | PCP | | + +------+ + Encounter Details +--------+ + + + + | Date | Type | Department | Care Team | Description | +--------+ + + + + | 08/27/ | Documentati | [facility] | Blair Guillen PA | | | 2016 | on | SLEEP DISORDER [address] | [address] | | | | | [place] [place] | [place] | | | | | [place] [id number] | [address] | | | | | [phone] | | | +--------+ + + + [...] + + documented as of this encounter Progress Notes Blair Guillen PA - 08/28/2015 3:33 PM Tawana was last seen in our office on 08/19/2014. She did not cancel or show up for her appointment on 08/19/2015. This was her first no-show. We will attempt to reschedule her follow up appointment Her CPAP compliance was going wel l at her last appointment. Blair Guillen PA-C documented in this enc ounter Plan of Treatment [...] 2018 | Visit | | BHUMIKA Ellis [address] | | | | | | [facility] | | | | | | [place] [address] | | | | | | [phone] | | | | | | | | +--------+ + + + + | 05/31/ | Clinical | Rheumatology | | | | 2019 | Support | | | | +--------+ + + + + documented as of this encounter Visit Diagnoses Not on filedocumented in this encounter"
--- OUTSIDE RECORDS SUMMARY | ~2019-05-07 | XMS | Encounter Summary ---
Demographics + + + | Address | [address] | | | [place] [address] | + + + | Home Phone | | + + + | Preferred Language | Unknown | + + + | Marital Status | | + + + | Evangelical Affiliation | Unknown | + + + | Race | Unknown | + + + | Ethnic Group | Unknown | + + + Author + + + | Author | [facility] [email or web address] (Historical as of | | | 02-10-19) | + + + | Organization | [facility] [email or web address] (Historical as of | | | 02-10-19) [...] Team Providers + +------+ + | Care Orthotic Assistant Name | Role | Phone | + +------+ + PCP | Unavailable | + +------+ + Reason for Visit Recurring Treatment (Routine) + +--------+ + + + + | Status | Reason | Specialty | Diagnoses / | Referred By | Referred To | | | | | Procedures | Contact | Contact | + +--------+ + + + + | Authorized | | Rheumatology | Diagnoses | Henry, | Jonah Rheum | | | | | Rheumatoid | Chel S, | Infusion | | | | | arthritis, | PA-C [address] | [address] | | | | | involving | [address] | [address] | | | | | unspecified | Place | [place] | | | | | site, | [place] | [address] | | | | | unspecified | [place] [address] | Phone: | | | | | rheumatoid | Phone: | [phone] | | | | | factor | [phone] | Fax: | | | | | presence | Fax: | [phone] | | | | | ([facility]) | [phone] | | | | | | Procedures | | | | | | | TOCILIZUMAB | | | | | | | INJECTION 1 | | | | | | | MG CHEMOTX | | | | | | | ADMN IV NFS | | | | | | | TQ UP 1 HR | | | | | | | | | | | | | | SBST/DRUG | | | + +--------+ + + + + Encounter Details +--------+ + + + + | Date | Type | Department | Care Team | Description | +--------+ + + + + | 02/07/ | Clinical | [facility] | Kelsey Oneal, | Rheumatoid | | 2019 | Support | Rheumatology | RN | arthritis, involving | | | | Infusion [address] | | unspecified site, | | | | [address] | | unspecified | | | | [place] [address] | | rheumatoid factor | | | | [phone] | | presence (HCC) | | | | | | (Primary Dx); High | | | | | | risk medication use | +--------+ + + + + Social [...] on file | | + + + as of this encounter Last Filed Vital [...] Oxygen Saturation | - | - | + + + + | Inhaled Oxygen | - | - | | Concentration | | | + + + + | Weight | 159.1 kg (350 lb | 02/07/2019 12:52 PM PDT | | | 12.8 oz) | | + + + + | Height | - | - | + + + + | Body Mass Index | 53.34 | 02/07/2019 12:52 PM PDT | + + + + in this encounter Instructions Patient Instructions - eKlsey Oneal RN - 02/07/2019 12:40 PM PDT Continue activities a s before your infusion, with rest as needed. Continue all medications unless otherwise direc roya by your physician. You should seek immediate medical attention if you experience: - A fever greater than 101 degrees - Chills, rash or hives - Swelling of lips, tongue, throat, face or eyelids - Throat irritation, tightness or cough - Shortness of breath - Irregular heartbeat or Chest Pain (with or without shortness of breath) Remember you cannot receive your infusion if you are on an antibiotic, have signs or symp toms of infection (fever/chills, sore throat, cough, open wound, nausea/vomiting/diarrhea, p ainful/burning/frequent urination). Please call our office to notify us of either condition, or if you have recently had surgery or are planning on having surgery. If you need to speak to a triage nurse please call our office at [phone] To reach the infusion radio frequency design engineer nisa ext. [phone] in this encounter Progress Notes Radha Hall RN - 02/07/2019 12:40 PM PDTPatient did well, with no adverse reaction s. Radha Hall RNin this encounter Plan of Treatment Not on fileas of this encounter Procedures + +--------+ + [...] | | + +--------+ + + + in this encounter Results C-reactive protein (02/07/2019 1:15 PM) + +---------+ [...] + + + | [facility] | [address] | [place] [address] | [phone] | | LABORATORY | [address]vd. | | | + + + + + Sedimentation rate, automated (02/07/2019 1:15 PM) + [...] + + + | [facility] | [address] | [place] [address] | [phone] | | LABORATORY | Blvd. | | [...] 0.9 | 0.1 - 1.5 mg/dL | [facility] | | | | | LABORATORY | + + + + + | ALK PHOS | 79 | 35 - 115 U/L | [facility] | | | | | LABORATORY | + + + + + | AST | 35 | 10 - 45 U/L | [facility] | | | | | LABORATORY | + + + + + | ALT | 46 | 10 - 65 U/L | [facility] | | | | | LABORATORY | + + + + + | EGFR | >60Comment: GFR <60: | >60 mL/min/1.73_m2 | [facility] | | | CHRONIC KIDNEY DISEASE, | [...] MDRD IDMS | | | | | traceable equation. | | | + + + + + + + | Specimen | + + | Blood | + + + + + + + | Performing | Address | City/State/Zipcode | Phone Number | | Organization | | | | + + + + + | [facility] | [address] | [place] [address] | [phone] | | LABORATORY | Blvd. | | [...] | + + + + + | [facility] | [address] | [place] [address] | [phone] | | LABORATORY | Blvd. | | | + + + + + in this encounter Visit Diagnoses + + | Diagnosis | + + | Rheumatoid arthritis, involving unspecified site, unspecified rheumatoid factor | | presence (HCC) - Primary | + + | High risk medication use | + + | Encounter for long-term (current) use of other medications | + + Administered Medications + +---------+ +--------+-------+------+ | Medication Order | MAR | Action | Dose | Rate | Site | | | Action | Date | | | | + +---------+ +--------+-------+------+ | tocilizumab (ACTEMRA) 800 mg in | New Bag | | 800 mg | 140 | | | sodium chloride (IV) 0.9 % 100 | | 9 13:15 | | mL/hr | | | mL IVPB 800 mg, Intravenous, | | PDT | | | | | Administer over 60 Minutes, Once, | | | | | | | 02/07/19 at 1400, For 1 dose, | | | | | | | Infuse over 60 minutes using a | | | | | | | dedicated I.V. line | | | | | | + +---------+ +--------+-------+------+ +---+---+ | | | +---+---+ in this encounter"
--- OUTSIDE RECORDS SUMMARY | ~2019-05-07 | XMS | Encounter Summary ---
Demographics + + + | Address | [address] | | | [place] [address] | + + + | Home Phone | | + + + | Preferred Language | Unknown | + + + | Marital Status | | + + + | Anabaptism Affiliation | 1041 | + + + | Race | Unknown | + + + | Ethnic Group | Unknown | + + + Author + + + | Author | [facility] | | | and [place] | + + + | Organization | [facility] | | | and [place] [...] Team Providers + +------+ + | Care Steam Hand Name | Role | Phone | + +------+ + | Laisha Quarles NP | PCP | | + +------+ + Reason for Visit +--------+ + | Reason | Comments | +--------+ + | Other | | +--------+ + Encounter Details +--------+ + + + + | Date | Type | Department | Care Team | Description | +--------+ + + + + | 09/23/ | Telephone | [facility] | Blair Guillen PA | Other | | 2015 | | SLEEP DISORDER [address] | [address] | | | | | [place] | [place] | | | | | [place] [address] | [address] | | | | | [phone] | | | +--------+ + + + [...] 2018 | Visit | | BHUMIKA Ellis [address] | | | | | | [place] | | | | | | [place] [address] | | | | | | [phone] | | | | | | | | +--------+ + + + + | 05/31/ | Clinical | Rheumatology | | | | 2019 | Support | | | | +--------+ + + + + documented as of this encounter Visit Diagnoses Not on filedocumented in this encounter"
--- OUTSIDE RECORDS SUMMARY | ~2019-05-07 | XMS | Encounter Summary ---
Demographics + + + | Address | [address] | | | [place] [address] | + + + | Home Phone | | + + + | Preferred Language | Unknown | + + + | Marital Status | | + + + | Mandaeism Affiliation | 1041 | + + + | Race | Unknown | + + + | Ethnic Group | Unknown | + + + Author + + + | Author | [facility] | | | and [place] | + + + | Organization | [facility] | | | and [place] | [...] Team Providers + +------+ + | Care Fourdrinier Machine Operator Name | Role | Phone | + [...] | [address] | [address]UMIKA Ellis [address] | | | | | [place] | [facility] | | | | | [address] | [facility] [address] | | | | | [phone] | [phone] | | | | | | | [...] 2018 | Visit | | BHUMIKA Ellis [address] | | | | | | [facility] | | | | | | [place] [address] | | | | | | [phone] | | | | | | | [...]
--- OUTSIDE RECORDS SUMMARY | ~2019-05-07 | XMS | Encounter Summary ---
Demographics + + + | Address | [address] | | | [place] [address] | + + + | Home Phone | | + + + | Preferred Language | Unknown | + + + | Marital Status | | + + + | Advent Affiliation | 1041 | + + + | Race | Unknown | + + + | Ethnic Group | Unknown | + + + Author + + + | Author | [facility] | | | and [place] | + + + | Organization | [facility] | | | and [place] [...] Team Providers + +------+ + | Care Project Technician Name | Role | Phone | + +------+ + PCP | Unavailable | + +------+ + Encounter Details +--------+ + + + + | Date | Type | Department | Care Team | Description | +--------+ + + + + | 12/26/ | Hospital | [facility] | [place], | | | 2007 - | Encounter | MED CTR MED ONC | Davina Segura MD [address] | | | | | [address] | [address] | | | 12/28/ | | [place] [id number] | [place] [id number] | | | 2007 | | [phone] | | | | | | | | | | | | Jessenia Ovalle MD | | | | | | [address] | | | | | | [place] | | | | | | [address] | | | | | | | [...] | | | | | [place] [address] | | | | | | [phone] | | | | | | | | +--------+ + + + + | 05/31/ | Clinical | Rheumatology | | | | 2018 | Support | | | | +--------+ + + + + documented as of this encounter Visit Diagnoses Not on filedocumented in this encounter"
--- OUTSIDE RECORDS SUMMARY | ~2019-05-07 | XMS | Encounter Summary ---
Demographics + + + | Address | [address] | | | [place] [address] | + + + | Home Phone | | + + + | Preferred Language | Unknown | + + + | Marital Status | | + + + | Holiness Affiliation | 1041 | + + + | Race | Unknown | + + + | Ethnic Group | Unknown | + + + Author + + + | Author | [facility] | | | and [place] | + + + | Organization | [facility] | | | and [...] Team Providers + +------+ + | Care Import Dispatcher Name | Role | Phone | + +------+ + | Laisha Quarles NP | PCP | | + +------+ + Encounter Details +--------+ + + + + | Date | Type | Department | Care Team | Description | +--------+ + + + + | 01/22/ | Orders Only | [facility] | Provider, | | | 2018 | | SYSTEM GENERIC OP | [address] | | | | | [address] | [place] | | | | | [address] [place], [place] | [place] [address] | | | | | [address] | | | | | | [phone] | | | +--------+ + + + [...] 2018 | Visit | | BHUMIKA Ellis [address] | | | | | | [place] | | | | | | [place] [address] | | | | | | [phone] | | | | | | | | +--------+ + + + + | 05/31/ | Clinical | Rheumatology | | | | 2018 | Support | | | | +--------+ + + + + documented as of this encounter Visit Diagnoses Not on filedocumented in this encounter"
--- OUTSIDE RECORDS SUMMARY | ~2019-05-07 | XMS | Encounter Summary ---
Demographics + + + | Address | [address] | | | [place] [address] | + + + | Home Phone | | + + + | Preferred Language | Unknown | + + + | Marital Status | | + + + | Restorationism Affiliation | 1041 | + + + | Race | Unknown | + + + | Ethnic Group | Unknown | + + + Author + + + | Author | [facility] | | | and [place] | + + + | Organization | [facility] | | | and [place] [...] Team Providers + +------+ + | Care Central Supply Technician Name | Role | Phone | + +------+ + | Laisha Quarles NP | PCP | | + +------+ + Encounter Details +--------+ + + + + | Date | Type | Department | Care Team | Description | +--------+ + + + + | 10/10/ | Orders Only | [facility] | Chel Henry | | | 2017 | | [address] | BHUMIKA Ellis [address] | | | | | [place] | [facility] | | | | | [address] | [facility] [address] | | | | | [phone] | [phone] | | | | | | | [...] 2018 | Visit | | BHUMIKA Ellis [address] | | | | | | [facility] | | | | | | [place] [address] | | | | | | [phone] | | | | | | | [...] | EXTERNAL LAB: CBC | Routin | 10/10/2017 | | Results for this | | | e | 12:38 PM | | procedure are in the | | | | PDT | | results section. | + +--------+ + + + | LIPID PANEL | Routin | 10/10/2017 | | Results for this | | | e | 12:38 PM | | procedure are in the | | | | PDT | | results section. | + +--------+ + + + | QUANTIFERON GOLD | Routin | 10/10/2017 | | Results for this | | | e | 12:38 PM | | procedure are in the | | | | PDT | | results section. | + +--------+ + + + | VITAMIN D, | Routin | 10/10/2017 | | Results for this | | DEFICIENCY SCREEN | e | 12:38 PM | | procedure are in the | | (25-HYDROXY) | | PDT | | results section. | + +--------+ + + + | SEDIMENTATION RATE, | Routin | 10/10/2017 | | Results for this | | AUTOMATED | e | 12:38 PM | | procedure are in the | | | | PDT | | results section. | + +--------+ + + + | COMPREHENSIVE | Routin | 10/10/2017 | | Results for this | | METABOLIC PANEL | e | 12:38 PM | | procedure are in the | | | | PDT | | results section. | + +--------+ + + + documented in this encounter Results Quantiferon Gold (10/10/2017 12:38 PM PDT) + + + + + + | Component | Value | Ref Range | Performed | Pathologist | | | | | At | Signature | + + + + + + | Quantiferon | NEGATIVEComment: | | EXTERNAL | | | TB Gold | Reference range: | | LAB | | | | NEGATIVEM. TUBERCULOSIS | | | | | | INFECTION NOT LIKELYTHIS | | | | | | IS A QUALITATIVE TEST. | | | | | | THE IU/ML VALUES SHOULD | | | | | | NOT BE USED TOMONITOR | | | | | | DISEASE PROGRESSION OR | | | | | | RESPONSE TO THERAPY. | | | | | | DIAGNOSING OREXCLUDING | | | | | | TUBERCULOSIS DISEASE AND | | | | | | ASSESSING THE | | | | | | PROBABILITY OF | | | | | | LTBIREQUIRE A | | | | | | COMBINATION OF | | | | | | EPIDEMIOLOGICAL, | | | | | | HISTORICAL, MEDICAL | | | | | | ANDDIAGNOSTIC FINDINGS | | | | | | THAT SHOULD BE TAKEN | | | | | | INTO ACCOUNT | | | | | | WHENINTERPRETING | | | | | | QUANTIFERON TB GOLD | | | | | | RESULTS.VALUES IN IU/ML | | | | | | FOR THE TB ANTIGEN AND | | | | | | MITOGEN ARE CORRECTED | | | | | | FORBACKGROUND BY | | | | | | SUBTRACTING THE IU/ML | | | | | | VALUE OBTAINED FROM THE | | | | | | RESPECTIVENIL CONTROL. | | | | | | THESE CORRECTED VALUES | | | | | | ARE USED FOR | | | | | | INTERPRETATION OF | | | | | | THETEST RESULTS. | | | | + + + + + + | TB 1 | 0.00Comment: Reference | [iU]/mL | EXTERNAL | | | Antigen | range: <0.35 | | LAB | | | Minus NIL | | | | | + + + + + + | MITOGEN | >10.00 | [iU]/mL | EXTERNAL | | | | | | LAB | | + + + + + + | QUANTIFERON | 0.05 | [iU]/mL | EXTERNAL | | | [...] | | | + +---------+ + + Vitamin D, Deficiency Screen (25-Hydroxy) (10/10/2017 12:38 PM PDT) + + + + + + | Component | Value | Ref Range | Performed | Pathologist | | | | | At | Signature | + + + + + + | Vit D, | 33Comment: <20 ng/mL | 30 - 150 ng/mL | EXTERNAL | | | 25-Hydroxy | Suggests deficiency | | LAB | | | | of 25-OH Vitamin D. | | | | | | 20-29 ng/mL | | | | | | Suggests a relative | | | | | | insufficiency of 25-OH | | | | | | Vitamin D. 30-150 ng/mL | | | | | | Suggests a sufficient | | | | | | level of 25-OH Vitamin | | | | | | D. >150 ng/mL | | | | | | Toxic level of 25-OH | | | | | | Vitamin D. Blood levels | | | | | | of 25 Hydroxy Vitamin D | | | | | | vary with the extent of | | | | | | sun exposure. Values | | | | | | tend to be highest in | | | | | | late summer and lowest | | | | | | in the spring. Values | | | | | | also tend to decrease | | | | | | with age, due to | | | | | | decreased precursor | | | | | | synthesis in the skin. | | | | + + + [...] + +---------+ + + Sedimentation rate, automated (10/10/2017 12:38 PM PDT) + +-------+ + + + | Component | Value | Ref Range | Performed | Pathologist | | | | | At | Signature | + +-------+ + + + | Sed Rate | 8 | 0 - 20 mm/h | EXTERNAL [...] | | | + +---------+ + + External Lab: CBC (10/10/2017 12:38 PM PDT) + + + + + + | Component | Value | Ref Range | Performed | Pathologist | | | | | At | Signature | + + + + + + | WBC | 8.04 | 3.80 - 11.00 | EXTERNAL | | | | | 10*3/uL | LAB | | + + + + + + | RED CELL | 5.12 (H) | 3.70 - 5.10 | EXTERNAL | | | COUNT | | 10*6/uL | LAB | | + + + + + + | Hgb | 14.6 | 11.3 - 15.5 | EXTERNAL | | | | | g/dL | LAB | | + + + + + + | Hematocrit, | 44.9 | 34.0 - 46.0 % | EXTERNAL | | | POC | | | LAB | | + + + + + + | MCV | 87.6 | 80.0 - 100.0 fL | EXTERNAL | | | | | | LAB | | + + + + + + | MCH | 28.6 | 27.0 - 34.0 pg | EXTERNAL | | | | | | LAB | | + + + + + + | MCHC | 32.6 | 32.0 - 35.5 | EXTERNAL | | | | | g/dL | LAB | | + + + + + + | RDW-CV | 47.7 | 37 - 53 fL | EXTERNAL | | | | | | LAB | | + + + + + + | Platelet | 206 | 150 - 400 | EXTERNAL | | | Count | | 10*3/uL | LAB | | | Plasma | | | | | + + + + + + | MPV | 9.9 | fL | EXTERNAL | | | | | | LAB | | + + + + + + | Differentia | AUTOMATED | | EXTERNAL | | | l Type | | | LAB | | + + + + + + | % Segmented | 38.73 | % | EXTERNAL | | | | | | LAB | | | Neutrophils | | | | | + + + + + + | % | 39.01 | % | EXTERNAL | | | Lymphocytes | | | LAB | | + + + + + + | % Monocytes | 9.20 | % | EXTERNAL | | | | | | LAB | | + + + + + + | % | 11.60 | % | EXTERNAL | | | Eosinophils | | | LAB | | + + + + + + | % Basophils | 1.46 | % | EXTERNAL | | | | | | LAB | | + + + + + + | Absolute | 3.11 | 1.90 - 7.40 | EXTERNAL | | | Segmented | | 10*3/uL | LAB | | | Neutrophils | | | | | + + + + + + | Absolute | 3.14 | 1.00 - 3.90 | EXTERNAL | | | Lymphocytes | | 10*3/uL | LAB | | + + + + + + | Absolute | 0.74 | 0.00 - 0.80 | EXTERNAL | | | Monocytes | | 10*3/uL | LAB | | + + + + + + | Absolute | 0.93 (H) | 0.00 - 0.50 | EXTERNAL | | | Eosinophils | | 10*3/uL | LAB | | + + + + + + | Absolute | 0.12 (H) | 0.00 - 0.10 | EXTERNAL | [...] | | | + +---------+ + + Lipid Panel (10/10/2017 12:38 PM PDT) + +---------+ + + + | Component | Value | Ref Range | Performed | Pathologist | | | | | At | Signature | + +---------+ + + + | Cholesterol | 204 (H) | mg/dL | EXTERNAL | | | | | | LAB | | + +---------+ + + + | Triglycerid | 277 (H) | mg/dL | EXTERNAL | | | es | | | LAB | | + +---------+ + + + | HDL | 39 (L) | mg/dL | EXTERNAL | | | | | | LAB | | + +---------+ + + + | LDL | 110 (H) | mg/dL | EXTERNAL | | | Cholesterol | | | LAB | | | , | | | | | | Calculated, | | | | | | External | | | | | + +---------+ + + + + + | Specimen | + + | Blood specimen | | (specimen) | + + + +---------+ + + | Performing | Address | City/State/Zipcode | Phone Number | | Organization | | | | + +---------+ + + | EXTERNAL LAB | | | | + +---------+ + + Comprehensive Metabolic Panel (10/10/2017 12:38 PM PDT) + + + + + + | Component | Value | Ref Range | Performed | Pathologist | | | | | At | Signature | + + + + + + | Na | 141 | 135 - 145 | EXTERNAL | | | | | mmol/L | LAB | | + + + + + + | K | 3.8 | 3.5 - 4.9 | EXTERNAL | | | | | mmol/L | LAB | | + + + + + + | Cl | 107 | 99 - 109 mmol/L | EXTERNAL | | | | | | LAB | | + + + + + + | CO2 | 25 | 23 - 32 mmol/L | EXTERNAL | | | | | | LAB | | + + + + + + | Anion Gap | 13 | 5 - 20 mmol/L | EXTERNAL | | | | | | LAB | | + + + + + + | Glucose, | 89 | 65 - 99 mg/dL | EXTERNAL | | | Fasting | | | LAB | | + + + + + + | BUN | 8 | 8 - 25 mg/dL | EXTERNAL | | | | | | LAB | | + + + + + + | Creatinine | 0.7 | 0.50 - 1.00 | EXTERNAL | | | | | mg/dL | LAB | | + + + + + + | BUN/Creatin | 11 | | EXTERNAL | | | ine Ratio | | | LAB | | + + + + + + | Calcium | 9.2 | 8.5 - 10.5 | EXTERNAL | | | | | mg/dL | LAB | | + + + + + + | Protein, | 6.8 | 6.3 - 8.2 g/dL | EXTERNAL | | | Total | | | LAB | | + + + + + + | Albumin | 3.5 (L) | 3.6 - 5.0 g/dL | EXTERNAL | | | | | | LAB | | + + + + + + | Globulin | 3.3 | 1.3 - 4.9 g/dL | EXTERNAL | | | | | | LAB | | + + + + + + | A/G Ratio | 1.1 | 1.0 - 2.4 | EXTERNAL | | | | | | LAB | | + + + + + + | Bilirubin | 0.5 | 0.1 - 1.5 mg/dL | EXTERNAL | | | Total | | | LAB | | + + + + + + | ALP, | 83 | 35 - 115 U/L | EXTERNAL | | | External | | | LAB | | + + + + + + | AST | 23 | 10 - 45 U/L | EXTERNAL | | | | | | LAB | | + + + + + + | ALT | 49 | 10 - 65 U/L | EXTERNAL [...] GFR BY 1.210. | | | | + + + [...]
--- OUTSIDE RECORDS SUMMARY | ~2019-05-07 | XMS | Encounter Summary ---
Demographics + + + | Address | [address] | | | [place] [address] | + + + | Home Phone | | + + + | Preferred Language | Unknown | + + + | Marital Status | | + + + | Baptist Affiliation | 1041 | + + + | Race | Unknown | + + + | Ethnic Group | Unknown | + + + Author + + + | Author | [facility] | | | and [place] | + + + | Organization | [facility] | | | and [place] | [...] Team Providers + +------+ + | Care Protection Manager Name | Role | Phone | + +------+ + PCP | Unavailable | + +------+ + Encounter Details +--------+ + + + + | Date | Type | Department | Care Team | Description | +--------+ + + + + | 12/28/ | Hospital | [facility] | Tierney Owusu MD | | | 2007 - | Encounter | [facility] | [address] | | | | | MEDICAL ONCOLOGY | [place] [address] | | | 01/03/ | | [address] | [phone] | | | 2007 | | [place], [place] | | | | | | [address] | Shanti Parra | | | | | [phone] | | | +--------+ + + + [...] RF factor positive and carried by her panel edge painter. 4. Anxiety and prednisone induced psychosis. This [...] HOSPITAL COURSE: The patient was transferred from [place], [place], on the December,. She had presented to [facility] in [place] two days prior to admission at [place], admitted from the emergency dept. there into the hospitalist service for a se mak rash. The rash began one week prior to admission [facility] . It had initially subsi ded slightly. She had stated that she was informed to discontinue use of sulfadiazine and Plaquenil, whi ch she took for rheumatoid arthritis one week prior to admission at [facility]. However, t he patient did not seem to have JAYRO BECKFORD [id number] 01/04/08 DIS IN [id number] DISCHARGE SUMMARY Saleem PEREZ R [facility] MD Ganesh Taylor THIS REPORT IS CONFIDENTIAL AND NOT TO BE RELEASED WITHOUT PROPER AUTHORIZATION. [facility] significant improvement of the rash. Initially she was seen in Emergency room on the week end prior to admission to [place], at which time she was given some [...] neck being significantly swollen. On admission to [facility] a number of tests had been drawn [...] appear to do very well while at [place]. She was subseque ntly transferred to [place] due to the availability of specialists. Upon arrival at [facility] on the , the patient had some [...] the following day, after visiting with the recovery engineer it was recommended that the patient be [...] much to t his situation. JAYRO BECKFORD [id number] 01/04/08 DIS IN [id number] DISCHARGE SUMMARY Saleem Ansari [facility] Tierney Owusu MD N THIS REPORT IS CONFIDENTIAL AND NOT TO BE RELEASED WITHOUT PROPER AUTHORIZATION. [facility] Further surgical pathology from the patient's bone [...] this return, we do recommend seeing a recovery engineer promptly. As a result of the patient's [...] The patient was allowed to leave the [facility] with a PICC line placed in the right arm. PICC line placement was confirmed with a est x-ray the prior day. Saleem Velasco MD, R1 JAYRO BECKFORD [id number] 01/04/08 DIS IN [id number] DISCHARGE SUMMARY Saleem gusman ES R [facility] Tierney Owusu MD N THIS REPORT IS CONFIDENTIAL AND NOT TO BE RELEASED WITHOUT PROPER AUTHORIZATION. [facility] Tierney Owusu MD P NQ/raw #[id number] cc: MD Alistair Lee, MD Jeff Bañuelos, MD Saleem Velasco MD,R1 Tierney Llamas MD Digitally authenticated 01/25/08 1700 Saleem Velasco JAYRO BECKFORD [id number] 01/04/08 DIS IN [id number] DISCHARGE SUMMARY Saleem Brentemperatriz gusman R [facility] Tierney Owusu MD N THIS REPORT IS [...] 2019 | Visit | | BHUMIKA Ellis [address] | | | | | | [facility] | | | | | | [place] [address] | | | | | | [phone] | | | | | | | [...] + + + | Exam Performed Location: [facility] [place] DUAL | MISCELANIOUS | | ENERGY CHEST [...] 04/21/2013 1:48 PM PDT Exam Performed Location: [facility] | [facility] [...] + + | Performing | Address | City/State[facility] | Phone Number | | Organization | | | | + +---------+ + + | MISCELLANEOUS LAB | | | [phone] | + +---------+ + + | MISCELANIOUS LAB | | | [phone] | + +---------+ + + Cytogenetics Specimen (12/31/2007 11:45 AM PDT) + + | Specimen | + + | | + + + + + | Narrative | Performed At | + + + | CYTOGENETICS REPORT Case #: [id number] Date | [facility] | | Taken: 12/31/2007 Date Received: [...] Method: GTW/G Sy Ruiz M.D., [facility] | | | 01/09/2008 Electronic Signature [facility] Manny Coronado M.D., | | | Director [address] [place] [address] or | | | | | + + + + + + + + | Performing | Address | City/State/Zipcode | Phone Number | | Organization | | | | + + + + + | [facility] | [address] | [place] [address] | | | [facility] | | | | | LABORATORY | | | | + + + + + | [facility] | | | | + + + + + Hematopathology Batsheva COE (12/31/2007 11:45 AM PDT) + + | Specimen | + + | | + + + + + | Narrative | Performed At | + + + | HEMATOPATHOLOGY REPORT | [facility] | | Date Taken: 12/31/2007 Date [...] | | | specimen. [facility] [address], [place] [id number] ([address]) | | | [phone] or Testing performed at: [facility] | | | [facility] Laboratory Manny Coronado M.D., | | | Director [address] [place] [address] [address] [place] [address] Phone: | | | | | + + + + + + + + | Performing | Address | City/State/[facility] | Phone Number | | Organization | | | | + + + + + | [facility] | [address] | [place] [address] | | | [facility] | | | | | LABORATORY | | | | + + + + + | [facility] | | | | + + + + + XR Chest 2 VW (12/29/2007 8:15 PM PDT) + + | Specimen | + + | | + + + + + | Narrative | Performed At | + + + | Exam Performed Location: [facility] AND | MISCELANIOUS | | LATERAL CHEST [...] 04/21/2013 1:53 PM PDT Exam Performed Location: [facility] | | at [facility] AND LATERAL CHESTCLINICAL INFORMATION:Fever and | | [...] + | MISCELLANEOUS LAB | | | [phone] | + +---------+ + + | MISCELANIOUS LAB | | | [phone] | + +---------+ + + Surgical Pathology Exam (12/29/2007 12:00 AM PDT) + + | Specimen | + + | | + + + + + | Narrative | Performed At | + + + | SURGICAL PATHOLOGY REPORT | [facility] | | Date Taken: 12/29/2007 Date Received: [...] | | MEHDI Electronic signature PRIOR REPORTS: [id number], | | | [id number] GROSS DESCRIPTION: The [...] | | specimen was received in formalin. (AR) 1: [id number] | | | [facility] [address] [place] [address] or | | | Testing performed at: [facility] | | | [facility] Manny Coronado M.D., Director [facility] [address] | | | [address] [place] [address] | | + + + + + + + + | Performing | Address | City/State/[facility] | Phone Number | | Organization | | | | + + + + + | [facility] | [address] | [place] [address] | | | [facility] | | | | | LABORATORY | | | | + + + + + | [facility] | | | | + + + + + documented in this encounter Visit Diagnoses Not on filedocumented in this encounter
--- OUTSIDE RECORDS SUMMARY | ~2019-05-07 | XMS | Encounter Summary ---
Demographics + + + | Address | [address] | | | [place] [address] | + + + | Home Phone | | + + + | Preferred Language | Unknown | + + + | Marital Status | | + + + | Worship Affiliation | 1041 | + + + | Race | Unknown | + + + | Ethnic Group | Unknown | + + + Author + + + | Author | [facility] | | | and [place] | + + + | Organization | [facility] | | | and [place] [...] Team Providers + +------+ + | Care Senior Infrastructure Engineer Name | Role | Phone | + +------+ + | Unknown, Doctor | PCP | | + +------+ + Reason for Visit Treatment/Therapy Plan (Routine) + +--------+ + + + + | Status | Reason | Specialty | Diagnoses / | Referred By | Referred To | | | | | Procedures | Contact | Contact | + +--------+ + + + + | Authorized | | | Diagnoses | Carl | Jonah | | | | | Rheumatoid | Chel | Rheumatology | | | | | arthritis, | BHUMIKA Ellis | Infusion | | | | | involving | [address] | | | | | unspecified | [address] | | | | | site, | PLACE | [place] | | | | | unspecified | [place], | [address] | | | | | rheumatoid | [place] [address] | Phone: | | | | | factor | Phone: | [phone] | | | | | presence | [phone] | Fax: | | | | | (HCC) | Fax: | [phone] | | | | | Procedures | [phone] | | | | | | MT | | | | | | | TOCILIZUMAB | | | | | | | INJECTION, 1 | | | | | | | EACH MT | | | | | | | CHEMOTHER, | | | | | | | IV INFUSION, | | | | | | | 1 HR | | | + +--------+ + + + + Encounter Details +--------+ + + + + | Date | Type | Department | Care Team | Description | +--------+ + + + + | 03/07/ | Clinical | [facility] | | Rheumatoid | | 2019 | Support | RHEUMATOLOGY | | arthritis, involving | | | | INFUSION [address] | | unspecified site, | | | | [address] | | unspecified | | | | [place] | | rheumatoid factor | | | | [address] | | presence (HCC) | | | | [phone] | | (Primary Dx) | +--------+ + + + + Social [...] this encounter Last Filed Vital Signs + +---------+ + + | Vital Sign | Reading | Time Taken | Comments | + +---------+ + + | Blood Pressure | 133/77 | 03/07/2019 3:03 PM | | | | | PDT | | + +---------+ + + | Pulse | 94 | 03/07/2019 3:03 PM | | | | | PDT | | + +---------+ + + | Temperature | - | - | | + +---------+ + + | Respiratory Rate | 16 | 03/07/2019 3:03 PM | | | | | PDT | | + +---------+ + + | Oxygen Saturation | - | - | | + +---------+ + + | Inhaled Oxygen | - | - | | | Concentration | | | | + +---------+ + + | Weight | - | - | | + +---------+ + + | Height | - | - | | + +---------+ + + | Body Mass Index | - | - | | + +---------+ + + documented in this encounter Patient Instructions Patient Instructions April Bhatt RN - 03/07/2019 1:40 PM PDTContinue activities as b efore your infusion, with rest as needed. Continue all medications unless otherwise directed by your physician. You should seek immediate [...] triage nurse please call our office at [phone] and ask to speak with a triage nurse. To reach the infusion senior master scheduler nisa ext. [phone] documented in this encounter Progress Notes April Bhatt, SANTOSH - 03/07/2019 1:40 PM PDTPatient did well, with no adverse reactions. April Bhatt RN, RN documented in this e ncounter Plan of Treatment +--------+ + + + [...] 2018 | Visit | | BHUMIKA Ellis [address] | | | | | | [address] | | | | | | [place] [address] | | | | | | [phone] | | | | | | | [...] presence (HCC) - Primary | + + documented in this encounter Administered Medications + +---------+ +--------+-------+------+ | Medication Order | MAR | Action | Dose | Rate | Site | | | Action | Date | | | | + +---------+ +--------+-------+------+ | tocilizumab (ACTEMRA) 800 mg in | New Bag | 03/07/20 | 800 mg | 140 | | | sodium chloride 0.9% 140 mL IVPB | | 19 2:04 | | mL/hr | | | 800 mg, Intravenous, Administer | | PM PDT | | | | | over 1 Hours, ONCE, 03/07/19 | | | | | | | at 1415, For 1 dose, This order | | | | | | | is appropriate for hospital OP | | | | | | | infusion departments. Calculate | | | | | | | toclizumab dose to nearest vial | | | | | | | size. (Vial sizes include 80 mg, | | | | | | | 200 mg, and 400 mg vials.) Max | | | | | | | dose is 800 mg. Begin infusion | | | | | | | within 24 hours of admixture. Do | | | | | | | not infuse other medications into | | | | | | | the IV line with tocilizumab | | | | | | | (ACTEMRA). Flush with saline | | | | | | | before and after medication | | | | | | | administration. Store mixed drug | | | | | | | at 2 to 8 degrees C. Protect from | | | | | | | light., | | | | | | + +---------+ +--------+-------+------+ +---+---+ | | | +---+---+ documented in this encounter"
--- OUTSIDE RECORDS SUMMARY | ~2019-05-07 | XMS | Encounter Summary ---
Demographics + + + | Address | [address] | | | [place] [address] | + + + | Home Phone | | + + + | Preferred Language | Unknown | + + + | Marital Status | | + + + | Caodaism Affiliation | 1041 | + + + | Race | Unknown | + + + | Ethnic Group | Unknown | + + + Author + + + | Author | [facility] | | | and [place] | + + + | Organization | [facility] | | | and [place] [...] Team Providers + +------+ + | Care Workers Compensation Coordinator Name | Role | Phone | + +------+ + | Laisha Quarles NP | PCP | | + +------+ + Encounter Details +--------+ + + + + | Date | Type | Department | Care Team | Description | +--------+ + + + + | 03/06/ | Orders Only | [facility] | Chel Henry | | | 2017 | | [address] | BHUMIKA Ellis [address] | | | | | [place] | [facility] | | | | | [address] | [facility] [address] | | | | | [phone] | [phone] | | | | | | | [...] 2018 | Visit | | BHUMIKA Ellis [address] | | | | | | [facility] | | | | | | [place] [address] | | | | | | [phone] | | | | | | | [...] | EXTERNAL LAB: CBC | Routin | 03/06/2018 | | Results for this | | | e | 2:00 PM | | procedure are in the | | | | PDT | | results section. | + +--------+ + + + | SEDIMENTATION RATE, | Routin | 03/06/2018 | | Results for this | | AUTOMATED | e | 2:00 PM | | procedure are in the | | | | PDT | | results section. | + +--------+ + + + | COMPREHENSIVE | Routin | 03/06/2018 | | Results for this | | METABOLIC PANEL | e | 2:00 PM | | procedure are in the | | | | PDT | | results section. | + +--------+ + + + documented in this encounter Results Sedimentation rate, automated (03/06/2018 2:00 PM PDT) + +--------+ + + + | Component | Value | Ref Range | Performed | Pathologist | | | | | At | Signature | + +--------+ + + + | Sed Rate | 32 (H) | 0 - 20 mm/h | EXTERNAL | | | | | | LAB | | + +--------+ + + + + + | Specimen | + + | Blood specimen | | (specimen) | + + + +---------+ + + | Performing | Address | City/State/Zipcode | Phone Number | | Organization | | | | + +---------+ + + | EXTERNAL LAB | | | | + +---------+ + + External Lab: CBC (03/06/2018 2:00 PM PDT) + + + + + + | Component | Value | Ref Range | Performed | Pathologist | | | | | At | Signature | + + + + + + | WBC | 11.62 (H) | 3.80 - 11.00 | EXTERNAL | | | | | 10*3/uL | LAB | | + + + + + + | RED CELL | 4.39 | 3.70 - 5.10 | EXTERNAL | | | COUNT | | 10*6/uL | LAB | | + + + + + + | Hgb | 13.5 | 11.3 - 15.5 | EXTERNAL | | | | | g/dL | LAB | | + + + + + + | Hematocrit, | 39.7 | 34.0 - 46.0 % | EXTERNAL | | | POC | | | LAB | | + + + + + + | MCV | 90.3 | 80.0 - 100.0 fL | EXTERNAL | | | | | | LAB | | + + + + + + | MCH | 30.7 | 27.0 - 34.0 pg | EXTERNAL | | | | | | LAB | | + + + + + + | MCHC | 34.0 | 32.0 - 35.5 | EXTERNAL | | | | | g/dL | LAB | | + + + + + + | RDW-CV | 45.5 | 37 - 53 fL | EXTERNAL | | | | | | LAB | | + + + + + + | Platelet | 199 | 150 - 400 | EXTERNAL | | | Count | | 10*3/uL | LAB | | | Plasma | | | | | + + + + + + | MPV | 9.6 | fL | EXTERNAL | | | | | | LAB | | + + + + + + | Differentia | AUTOMATED | | EXTERNAL | | | l Type | | | LAB | | + + + + + + | % Segmented | 60.14 | % | EXTERNAL | | | | | | LAB | | | Neutrophils | | | | | + + + + + + | % | 21.83 | % | EXTERNAL | | | Lymphocytes | | | LAB | | + + + + + + | % Monocytes | 8.41 | % | EXTERNAL | | | | | | LAB | | + + + + + + | % | 9.01 | % | EXTERNAL | | | Eosinophils | | | LAB | | + + + + + + | % Basophils | 0.61 | % | EXTERNAL | | | | | | LAB | | + + + + + + | Absolute | 6.99 | 1.90 - 7.40 | EXTERNAL | | | Segmented | | 10*3/uL | LAB | | | Neutrophils | | | | | + + + + + + | Absolute | 2.54 | 1.00 - 3.90 | EXTERNAL | | | Lymphocytes | | 10*3/uL | LAB | | + + + + + + | Absolute | 0.98 (H) | 0.00 - 0.80 | EXTERNAL | | | Monocytes | | 10*3/uL | LAB | | + + + + + + | Absolute | 1.05 (H) | 0.00 - 0.50 | EXTERNAL | | | Eosinophils | | 10*3/uL | LAB | | + + + + + + | Absolute | 0.07 | 0.00 - 0.10 | EXTERNAL | [...] + +---------+ + + Comprehensive Metabolic Panel (03/06/2018 2:00 PM PDT) + + + + + + | Component | Value | Ref Range | Performed | Pathologist | | | | | At | Signature | + + + + + + | Na | 140 | 135 - 145 | EXTERNAL | | | | | mmol/L | LAB | | + + + + + + | K | 3.8 | 3.5 - 4.9 | EXTERNAL | | | | | mmol/L | LAB | | + + + + + + | Cl | 103 | 99 - 109 mmol/L | EXTERNAL | | | | | | LAB | | + + + + + + | CO2 | 27 | 23 - 32 mmol/L | EXTERNAL | | | | | | LAB | | + + + + + + | Anion Gap | 14 | 5 - 20 mmol/L | EXTERNAL | | | | | | LAB | | + + + + + + | Glucose, | 105 (H) | 65 - 99 mg/dL | EXTERNAL | | | Fasting | | | LAB | | + + + + + + | BUN | 7 (L) | 8 - 25 mg/dL | EXTERNAL | | | | | | LAB | | + + + + + + | Creatinine | 0.6 | 0.50 - 1.00 | EXTERNAL | | | | | mg/dL | LAB | | + + + + + + | BUN/Creatin | 12 | | EXTERNAL | | | ine Ratio | | | LAB | | + + + + + + | Calcium | 8.8 | 8.5 - 10.5 | EXTERNAL | [...] + + + + | Globulin | 3.2 | 1.3 - 4.9 g/dL | EXTERNAL [...] + + + + | ALP, | 99 | 35 - 115 U/L | EXTERNAL | | | External | | | LAB | | + + + + + + | AST | 27 | 10 - 45 U/L | EXTERNAL | | | | | | LAB | | + + + + + + | ALT | 52 | 10 - 65 U/L | EXTERNAL [...] | | | | using the [facility] | | | | | | traceable [...]
--- OUTSIDE RECORDS SUMMARY | ~2019-05-07 | XMS | Encounter Summary ---
Demographics + + + | Address | [address] | | | [place] [address] | + + + | Home Phone | | + + + | Preferred Language | Unknown | + + + | Marital Status | | + + + | Mormon Affiliation | 1041 | + + + | Race | Unknown | + + + | Ethnic Group | Unknown | + + + Author + + + | Author | [facility] | | | and [place] | + + + | Organization | [facility] | | | and [place] [...] Team Providers + +------+ + | Care Catheter Finisher And Inspector Name | Role | Phone | + [...] | [address] | BHUMIKA Ellis [address] | | | | | [place] | [facility] | | | | | [address] | [facility] [address] | | | | | [phone] | [phone] | | | | | | | [...] 2018 | Visit | | BHUMIKA Ellis [address] | | | | | | [facility] | | | | | | [place] [address] | | | | | | [phone] | | | | | | | [...]
--- OUTSIDE RECORDS SUMMARY | ~2019-05-07 | XMS | Encounter Summary ---
Demographics + + + | Address | [address] | | | [place] [address] | + + + | Home Phone | | + + + | Preferred Language | Unknown | + + + | Marital Status | | + + + | Pentecostalism Affiliation | 1041 | + + + | Race | Unknown | + + + | Ethnic Group | Unknown | + + + Author + + + | Author | [facility] | | | and [place] | + + + | Organization | [facility] | | | and [place] [...] Team Providers + +------+ + | Care Industrial Cleaning Technician Name | Role | Phone | + +------+ + | Laisha Quarles NP | PCP | | + +------+ + Reason for Visit +--------+ + | Reason | Comments | +--------+ + | Apnea | | +--------+ + Encounter Details +--------+---------+ + + + | Date | Type | Department | Care Team | Description | +--------+---------+ + + + | 06/17/ | Office | [facility] | Blair Guillen PA | ROMA on CPAP (Primary | | 2013 | Visit | SLEEP DISORDER [address] | [address] | Dx) | | | | [address] | [place] | | | | | [place] [address] | [address] | | | | | [phone] | | | +--------+---------+ + + + [...] +---------+ + + | Blood Pressure | 132/86 | 06/17/2014 2:59 PM | | | | | PST | | + +---------+ + + | Pulse | 96 | 06/17/2014 2:59 PM | | | | | PST | | + +---------+ + + | Temperature | - | - | | + +---------+ + + | Respiratory Rate | 16 | 06/17/2014 2:59 PM | | | | | PST | | + +---------+ + + | Oxygen Saturation | 93% | 06/17/2014 2:59 PM | | | | | PST | | + +---------+ + + | [...] +---------+ + + documented in this encounter Progress Notes Blair Guillen PA - 06/17/2014 3:06 PM PST Subjective: Patient ID: Radha Heck is a 43 y.o. female. HPI last office visit was: 06/13/2014 date of split-night polysomnography: 06/11/2014 AHI: 108.5 RDI: 108.5 O2%: 67% with 35.5 minutes below 88% Machine type: ResMed AirSense 10 with nasal pillows obtained from: [employer] in [place] pressure: 12-20 cm 95%: 16.1 cm maximum: 19.5 cm Nights using CPAP: 4/4 % of nights >4 hours: 100% average usage (all nights): 8:45 average usage (nights used): 8:45 AHI: 2.1 Radha comes in for CPAP compliance. She has used her CPAP each of her first four nights for the duration of her sleep. She slept very well on the night of her split-night polysomnogr am during the treatment portion of the study. The following night she did not have her CPAP and had a "terrible" night without it. She has slept well during the last four nights. Paola walsh feels that she is sleeping more, but is feeling better. She is still sleepy during the da y and is napping, but she feels that her sleep has improved tremendously. She is now excite d to go to sleep at night. Her main challenge has been with some soreness in her nares from her nasal pillows. She is also waking during the night because of her mask. We discussed the fact that we sleep in ninety minute sleep cycles throughout the night. We briefly wake up after each of these cycles, but it is usually a subconscious period. We discussed the fa ct that CPAP can disrupt these cycles and cause it to be a conscious wakeup. For others, th is remains a subconscious wakeup and the take off their mask and go back to sleep without re membering it. As the CPAP becomes more familiar, it returns to being a subconscious wakeup. She is comfortable with her current settings and is now comfortable making adjustments to the settings, if necessary. I have discussed the download in detail. This shows that her sleep apnea is well controlle d, with an AHI of 2.1. It also shows that her leaks are controlled. Review of Systems Objective: Physical Exam Assessment: Problem #1: OBSTRUCTIVE SLEEP APNEA (327.23) This is well controlled with CPAP. Her CPAP compliance is going well. Her main challenge has been with some soreness in her nares from her nasal pillows. Plan: She is to continue with CPAP indefinitely. I have recommended trying a topical ointment to help with the soreness in her nares. If this is not helpful, she would likely benefit from changing to a nasal mask. I will follow up again in 2 months, sooner prn. At that time we will reassess with all gisele ropriate paperwork. Thirty minutes were spent [id number], with the majority of time spent in [...] 05/31/ | Office | Rheumatology | Chel Henyr | | | 2019 | Visit | | BHUMIKA Ellis [address] | | | | | | [address] | | | | | | [place] [address] | | | | | | [phone] | | | | | | | [...] (pediatric) | + + documented in this encounter
--- OUTSIDE RECORDS SUMMARY | ~2019-05-07 | XMS | Encounter Summary ---
Demographics + + + | Address | [address] | | | [place] [address] | + + + | Home Phone | | + + + | Preferred Language | Unknown | + + + | Marital Status | | + + + | Sikh Affiliation | 1041 | + + + | Race | Unknown | + + + | Ethnic Group | Unknown | + + + Author + + + | Author | [facility] | | | and [place] | + + + | Organization | [facility] | | | and [place] [...] Team Providers + +------+ + | Care Linter Saw Sharpener Name | Role | Phone | + [...] | [address] | BHUMIKA Ellis [address] | | | | | [place] | [facility] | | | | | [address] | [facility] [address] | | | | | [phone] | [phone] | | | | | | | [...] 2018 | Visit | | BHUMIKA Ellis [address] | | | | | | [facility] | | | | | | [place] [address] | | | | | | [phone] | | | | | | | [...] | | | | using the [facility] | | | | | | [...]
--- OUTSIDE RECORDS SUMMARY | ~2019-05-07 | XMS | Encounter Summary ---
Demographics + + + | Address | [address] | | | [place] [address] | + + + | Home Phone | | + + + | Preferred Language | Unknown | + + + | Marital Status | | + + + | Holiness Affiliation | 1041 | + + + | Race | Unknown | + + + | Ethnic Group | Unknown | + + + Author + + + | Author | [facility] | | | and [place] | + + + | Organization | [facility] | | | and [...] Team Providers + +------+ + | Care Sleeve Turner Name | Role | Phone | + +------+ + | Laisha Quarles NP | PCP | | + +------+ + Encounter Details +--------+ + + + + | Date | Type | Department | Care Team | Description | +--------+ + + + + | 01/23/ | Orders Only | [facility] | Chel Henry | | | 2013 | | [address] | BHUMIKA Ellis [address] | | | | | [place] | [facility] | | | | | [address] | [facility] [address] | | | | | [phone] | [phone] | | | | | | | [...] 2018 | Visit | | BHUMIKA Ellis [address] | | | | | | [facility] | | | | | | [place] [address] | | | | | | [phone] | | | | | | | [...] | + +--------+ + + + | HEPATITIS PANEL, | Routin | 01/23/2014 | | Results for this | | CHRONIC | e | 3:35 PM | | procedure are in the | | | | PDT | | results section. | + +--------+ + + + | PROTEIN | Routin | 01/23/2014 | | Results for this | | ELECTROPHORESIS AND | e | 3:35 PM | | procedure are in the | | BASIA, SERUM | | PDT | | results section. | + +--------+ + + + documented in this encounter Results Hepatitis Panel, Chronic (01/23/2014 3:35 PM PDT) + + + + + + | Component | Value | Ref Range | Performed | Pathologist | | | | | At | Signature | + + + + + + | Hep A Total | NON REACTIVE | | EXTERNAL | | | Ab Interp | | | LAB | | + + + + + + | Hepatitis B | NON REACTIVE | | EXTERNAL | | | Surface Ag | | | LAB | | + + + + + + | Hepatitis B | NON REACTIVE | | EXTERNAL | | | Core Ab | | | LAB | | | Total | | | | | + + + + + + | HEP B | <0.35Comment: <1.00 | IV | EXTERNAL | | | SURFACE | Non Immune1.00 | | LAB | | | ANTIBODY | OR MORE Indicates | | | | | | vaccine response or | | | | | | response to HBV | | | | | | infection. An Index | | | | | | Value (IV) of 1.00 is | | | | | | equivalent to 10 mIU/mL. | | | | | | Samples with an IV of | | | | | | 1.00 or greater are | | | | | | considered reactive | | | | | | (protected) in | | | | | | accordance with CDC | | | | | | Guidelines. | | | | + + + + + + | HCV Ab | NON REACTIVE | | EXTERNAL | | | | | | LAB | | + + + + + + | Hepatitis | No serologic evidence of | | EXTERNAL | | | Interpretat | HAV, HBV, or HCV | | LAB | | | ion | infection. | | | | + + + + + + + + | Specimen | + + | | + + + +---------+ + + | Performing | Address | City/State/Zipcode | Phone Number | | Organization | | | | + +---------+ + + | EXTERNAL LAB | | | | + +---------+ + + Protein Electrophoresis and BASIA, Serum (01/23/2014 3:35 PM PDT) + + + + + + | Component | Value | Ref Range | Performed | Pathologist | | | | | At | Signature | + + + + + + | Protein, | 8.0 | 6.2 - 8.2 g/dL | EXTERNAL | | | Total | | | LAB | | + + + + + + | ELP Albumin | 3.5 | 3.5 - 5.0 g/dL | EXTERNAL | | | % | | | LAB | | + + + + + + | ALPHA 1, BF | 0.3 | 0.1 - 0.4 g/dL | EXTERNAL | | | | | | LAB | | + + + + + + | ALPHA 2 | 0.9 | 0.5 - 1.1 g/dL | EXTERNAL | | | GLOBULIN | | | LAB | | + + + + + + | Beta-1 | 0.6 | 0.4 - 0.8 g/dL | EXTERNAL | | | | | | LAB | | + + + + + + | BETA 2, BF | 0.5 | 0.2 - 0.5 g/dL | EXTERNAL | | | | | | LAB | | + + + + + + | GAMMA, BF | 2.1 (H) | 0.6 - 1.5 g/dL | EXTERNAL | | | | | | LAB | | + + + + + + | Albumin | 43.8 (L) | 45.0 - 80.0 % | EXTERNAL | | | | | | LAB | | + + + + + + | ALPHA 1, BF | 3.7 | 1.0 - 6.0 % | EXTERNAL | | | | | | LAB | | + + + + + + | Alpha 2 % | 11.6 | 6.0 - 17.0 % | EXTERNAL | | | | | | LAB | | + + + + + + | Beta-1 % | 7.9 | 5.0 - 13.0 % | EXTERNAL | | | | | | LAB | | + + + + + + | Beta-2 % | 6.8 | 2.0 - 8.0 % | EXTERNAL | | | | | | LAB | | + + + + + + | GAMMA, BF | 26.1 (H) | 7.5 - 24.0 % | EXTERNAL | | | | | | LAB | | + + + + + + | ELP | SEE BELOWComment: | | EXTERNAL | | | INTERPRETAT | DIFFUSE (POLYCLONAL) | | LAB | | | ION | HYPERGAMMAGLOBULINEMIA | | | | | | (? CHRONIC | | | | | | INFLAMMATION,INFECTION | | | | | | OR ANTIGENIC | | | | | | STIMULATION).INTERPRETED | | | | | | BY JLB | | | | + + + + + + | Immunofixat | SEE BELOWComment: SERUM | | EXTERNAL | | | ion, Urine | BASIA STUDIES SHOW NO | | LAB | | | Interp | EVIDENCE OF MONOCLONAL | | | | | | GAMMOPATHY.INTERPRETED | | | | | | BY JLB | | | | + + + [...]
--- OUTSIDE RECORDS SUMMARY | ~2019-05-07 | XMS | Encounter Summary ---
Demographics + + + | Address | [address] | | | [place] [address] | + + + | Home Phone | | + + + | Preferred Language | Unknown | + + + | Marital Status | | + + + | Sikhism Affiliation | 1041 | + + + | Race | Unknown | + + + | Ethnic Group | Unknown | + + + Author + + + | Author | [facility] | | | and [place] | + + + | Organization | [facility] | | | and [place] [...] Team Providers + +------+ + | Care Rib Puller Name | Role | Phone | + +------+ + | Laisha Quarles NP | PCP | | + +------+ + Reason for Visit + + + | Reason | Comments | + + + | Medication Refill | | + + + Encounter Details +--------+--------+ + + + | Date | Type | Department | Care Team | Description | +--------+--------+ + + + | 02/20/ | Refill | [facility] | Chel Henry | Medication Refill | | 2019 | | RHEUMATOLOGY [address] | BHUMIKA Ellis [address] | | | | | [address] | [facility] | | | | | [place], [place] | [place] [address] | | | | | [address] | [phone] | | | | | [phone] | | | +--------+--------+ + + + Social History + +-------+ [...] [address] | | | | | | [facility] | | | | | | [place] [address] | | | | | | [phone] | | | | | | | | +--------+ + + + + | 05/31/ | Clinical | Rheumatology | | | | 2019 | Support | | | | +--------+ + + + + documented as of this encounter Visit Diagnoses Not on filedocumented in this encounter"
--- OUTSIDE RECORDS SUMMARY | ~2019-05-07 | XMS | Encounter Summary ---
Demographics + + + | Address | [address] | | | [place] [address] | + + + | Home Phone | | + + + | Preferred Language | Unknown | + + + | Marital Status | | + + + | Islam Affiliation | 1041 | + + + | Race | Unknown | + + + | Ethnic Group | Unknown | + + + Author + + + | Author | [facility] | | | and [place] | + + + | Organization | [facility] | | | and [place] [...] Team Providers + +------+ + | Care Adoption Worker Name | Role | Phone | [...] + | 06/17/ | Office | [facility] | Blair Guillen PA | ROMA on CPAP (Primary | | 2013 | Visit | SLEEP DISORDER [address] | [address] | Dx) | | | | [address] | [place] | | | | | [place] [address] | [address] | | | | | [phone] | | | +--------+---------+ + + + [...] AirSense 10 with nasal pillows obtained from: [employer] in [place] pressure: 12-20 cm 95%: 16.1 cm maximum: [...] gisele ropriate paperwork. Thirty minutes were spent [id number], with the majority of time spent in [...] | | | | | [place] [address] | | | | | | [phone] | | | | | | | [...]
--- OUTSIDE RECORDS SUMMARY | ~2019-05-07 | XMS | Encounter Summary ---
Demographics + + + | Address | [address] | | | [place] [address] | + + + | Home Phone [...] | Author | [facility] | | | and [place] | + + + | Organization | [facility] | | | [...] Team Providers + +------+ + | Care Care Manager Cna Name | Role | Phone | + +------+ + PCP | Unavailable | + +------+ + Encounter Details +--------+ + + + + | Date | Type | Department | Care Team | Description | +--------+ + + + + | 12/07/ | Hospital | [facility] | Angely Floyd | | | 2007 | Encounter | MED CTR EMERGENCY | Imelda Cary MD [address] | | | | [address] | [facility] | | | | | [place] | [place] [address] | | | | | [address] | [phone] | | | | | [phone] | | | +--------+ + + + [...] | | | | | [place] [address] | | | | | | [phone] | | | | | | | | +--------+ + + + + | 05/31/ | Clinical | Rheumatology | | | | 2018 | Support | | | | +--------+ + + + + documented as of this encounter Visit Diagnoses Not on filedocumented in this encounter"
--- OUTSIDE RECORDS SUMMARY | ~2019-05-07 | XMS | Encounter Summary ---
Demographics + + + | Address | [address] | | | [place] [address] | + + + | Home Phone | | + + + | Preferred Language | Unknown | + + + | Marital Status | | + + + | Anglican Affiliation | 1041 | + + + | Race | Unknown | + + + | Ethnic Group | Unknown | + + + Author + + + | Author | [facility] | | | and [place] | + + + | Organization | [facility] | | [...] Team Providers + +------+ + | Care Mortgage Loan Closer Name | Role | Phone | + +------+ + | Unknown, Doctor | PCP | | + +------+ + Reason for Visit +---------+ + | Reason | Comments | +---------+ + | Test Kitchen Home Economist | | +---------+ + Encounter Details +--------+ + + + + | Date | Type | Department | Care Team | Description | +--------+ + + + + | 03/07/ | Telephone | [facility] | Brad Bauer, | Test Kitchen Home Economist | | 2019 | | RHEUMATOLOGY [address] | PA-C [address] | | | | | [address] | [facility] | | | | | [facility] | [place] [address] | | | | | [address] | [phone] | | | | | [phone] | | | +--------+ + + + [...] 2018 | Visit | | BHUMIKA Ellis [address] | | | | | | [address] | | | | | | [place] [address] | | | | | | [phone] | | | | | | | | +--------+ + + + + | 05/31/ | Clinical | Rheumatology | | | | 2019 | Support | | | | +--------+ + + + + documented as of this encounter Visit Diagnoses + + | Diagnosis | + + | ERRONEOUS ENCOUNTER--DISREGARD - Primary | + + documented in this encounter"
--- OUTSIDE RECORDS SUMMARY | ~2019-05-07 | XMS | Encounter Summary ---
Demographics + + + | Address | [address] | | | [place] [address] | + + + | Home Phone | | + + + | Preferred Language | Unknown | + + + | Marital Status | | + + + | Uatsdin Affiliation | 1041 | + + + | Race | Unknown | + + + | Ethnic Group | Unknown | + + + Author + + + | Author | [facility] | | | and [place] | + + + | Organization | [facility] | | | and [place] [...] Team Providers + +------+ + | Care Propagator Name | Role | Phone | + [...] + | 08/19/ | Office | [facility] | Blair Guillen PA | ROMA on CPAP (Primary | | 2015 | Visit | SLEEP DISORDER [address] | [address] | Dx) | | | | [address] | [place] | | | | | [place] [address] | [address] | | | | | [phone] | | | +--------+---------+ + + + [...] Insomnia Severity Index Insomnia Severity Index 8 Broad Top Sleepiness Scale Sitting and reading 1 Watching [...] AirSense 10 with nasal pillows obtained from: [employer] in [place] pressure: 12-20 cm 95%: 17.1 cm maximum: [...] have faxed a prescription to Wendy in [place] to convert her CPAP/BiPAP to purchase. I have recommended that she touch base with [facility] twice per year to ensure that her equipment is satisfactory. I will follow up again in 1 year, sooner prn. At that time we will reassess with all appro priate paperwork. Fifteen minutes were spent [id number], with the majority of time spent in [...] 2018 | Visit | | BHUMIKA Ellis [address] | | | | | | [address] | | | | | | [place] [address] | | | | | | [phone] | | | | | | | [...]
--- OUTSIDE RECORDS SUMMARY | ~2019-05-07 | XMS | Encounter Summary ---
Demographics + + + | Address | [address] | | | [place] [address] | + + + | Home Phone | | + + + | Preferred Language | Unknown | + + + | Marital Status | | + + + | Lutheran Affiliation | 1041 | + + + | Race | Unknown | + + + | Ethnic Group | Unknown | + + + Author + + + | Author | [facility] | | | and [place] | + + + | Organization | [facility] | | | and [place] [...] Team Providers + +------+ + | Care Community Dietitian Name | Role | Phone | + [...] | Telephone | [facility] [place] | Blair Guileln PA | Other | | 2015 | | SLEEP DISORDER [address] | [address] | | | | | [place] | [place] | | | | | [place] [address] | [address] | | | | | [phone] | | | +--------+ + + + [...] 2018 | Visit | | BHUMIKA Ellis [address] | | | | | | [place] [address] | | | | | | [place] [address] | | | | | | [phone] | | | | | | | | +--------+ + + + + | 05/31/ | Clinical | Rheumatology | | | | 2019 | Support | | | | +--------+ + + + + documented as of this encounter Visit Diagnoses Not on filedocumented in this encounter"
--- OUTSIDE RECORDS SUMMARY | ~2019-05-07 | XMS | Encounter Summary ---
Demographics + + + | Address | [address] | | | [place] [address] | + + + | Home Phone | | + + + | Preferred Language | Unknown | + + + | Marital Status | | + + + | Yarsani Affiliation | 1041 | + + + | Race | Unknown | + + + | Ethnic Group | Unknown | + + + Author + + + | Author | [facility] | | | and [place] | + + + | Organization | [facility] | | | and [...] Team Providers + +------+ + | Care Psychology Physician Name | Role | Phone | + +------+ + PCP | Unavailable | + +------+ + Encounter Details +--------+ + + + + | Date | Type | Department | Care Team | Description | +--------+ + + + + | 12/23/ | Hospital | [facility] | Herbie, | | | 2007 | Encounter | MED CTR EMERGENCY | Uriel Brown MD [address] | | | | | [place] [address] | [place] | | | | | [place] | [place] [address] | | | | | [address] | [phone] | | | | | [phone] | | | +--------+ + + + [...] | | | | | [place] [address] | | | | | | [phone] | | | | | | | | +--------+ + + + + | 05/31/ | Clinical | Rheumatology | | | | 2018 | Support | | | | +--------+ + + + + documented as of this encounter Visit Diagnoses Not on filedocumented in this encounter"
--- OUTSIDE RECORDS SUMMARY | ~2019-05-07 | XMS | Encounter Summary ---
Demographics + + + | Address | [address] | | | [place] [address] | + + + | Home Phone [...] + + | Author | [facility] | | | and [place] | + + + | Organization | [facility] | | | and [place] | [...] Team Providers + +------+ + | Care Machine Heel Builder Name | Role | Phone | + +------+ + PCP | Unavailable | + +------+ + Encounter Details +--------+ + + + + | Date | Type | Department | Care Team | Description | +--------+ + + + + | 01/12/ | Hospital | [facility] | [place], | | | 2007 | Encounter | MED CTR MED ONC | Davina Segura MD [address] | | | | | [address] [place] | [address] | | | | | [place] [address] | [place] [address] | | | | | [phone] | | | | | | | [...] | | | | | [place] [address] | | | | | | [phone] | | | | | | | | +--------+ + + + + | 05/31/ | Clinical | Rheumatology | | | | 2018 | Support | | | | +--------+ + + + + documented as of this encounter Visit Diagnoses Not on filedocumented in this encounter"
--- OUTSIDE RECORDS SUMMARY | ~2019-05-07 | XMS | Encounter Summary ---
Demographics + + + | Address | [address] | | | [place] [address] | + + + | Home Phone | | + + + | Preferred Language | Unknown | + + + | Marital Status | | + + + | Confucianist Affiliation | 1041 | + + + | Race | Unknown | + + + | Ethnic Group | Unknown | + + + Author + + + | Author | [facility] | | | and [place] | + + + | Organization | [facility] | | | and [place] | [...] Team Providers + +------+ + | Care Nuclear Security Officer Name | Role | Phone | + +------+ + | Laisha Quarles NP | PCP | | + +------+ + Encounter Details +--------+ + + + + | Date | Type | Department | Care Team | Description | +--------+ + + + + | 01/28/ | Orders Only | [facility] | Chel Henry | | | 2019 | | RHEUMATOLOGY [address] | BHUMIKA Ellis [address] | | | | | [address] | [facility] | | | | | [place] | [place] [address] | | | | | [address] | [phone] | | | | | [phone] | | | +--------+ + + + [...] + + + | Blood Pressure | - | - | | + + + + + | Pulse | - | - | | + + + + + | Temperature | - | - | | + + + + + | Respiratory Rate | - | - | | + + + + + | Oxygen Saturation | - | - | | + + + + + | Inhaled Oxygen | - | - | | | Concentration | | | | + + + + + | Weight | 160.4 kg (353 lb 9.9 | 01/28/2019 12:07 PM | | | | oz) | PDT | | + + + + + | Height | - | - | | + + + + + | Body Mass Index | 53.77 | 11/23/2018 1:42 PM | | | | | PDT | | + + + + + documented in this encounter Plan of Treatment +--------+ + [...] 2018 | Visit | | BHUMIKA Ellis [address] | | | | | | [address] | | | | | | [place] [address] | | | | | | [phone] | | | | | | | | +--------+ + + + + | 05/31/ | Clinical | Rheumatology | | | | 2018 | Support | | | | +--------+ + + + + documented as of this encounter Visit Diagnoses Not on filedocumented in this encounter"
--- OUTSIDE RECORDS SUMMARY | ~2019-05-07 | XMS | Encounter Summary ---
Demographics + + + | Address | [address] | | | [place] [address] | + + + | Home Phone | | + + + | Preferred Language | Unknown | + + + | Marital Status | | + + + | Nondenominational Affiliation | 1041 | + + + | Race | Unknown | + + + | Ethnic Group | Unknown | + + + Author + + + | Author | [facility] | | | and [place] | + + + | Organization | [facility] | | | and [...] Team Providers + +------+ + | Care Product Demonstrator Name | Role | Phone | + +------+ + | Laisha Quarles NP | PCP | | + +------+ + Reason for Visit Evaluate & Treat (Routine) +--------+ + + [...] Medicine | Delayed | Davon Ramírez | [place] [address] | | | Required | | sleep phase | MD Pedro Luis [address] | [place] | | | | | syndrome | [place] | [place], | | | | | Restless | [place] | [place] [address] | | | | | legs [place] | [place], [place] | Phone: | | | | | (obstructive | [address] | [phone] | | | | | sleep | Phone: | Fax: | | | | | apnea) | [phone] | [phone] | | | | | Procedures | Fax: | | | | | | [place] POLYSOM | [phone] | | | | | | 6/>YRS SLEEP | | | | | | | W/CPAP 4/> | | | | | | | ADDL CORNELIO | | | | | | | ATTND SPLIT | | | | | | | NIGHT | | | +--------+ + + + + + Encounter Details +--------+ + + + + | Date | Type | Department | Care Team | Description | +--------+ + + + + | 06/11/ | Hospital | [facility] | Davon Brunner | | | 2014 | Encounter | MED CTR SLEEP | MD Pedro Luis [address] | | | | | CENTER [address] | [address] [facility] | | | | | [place], [place] | [place] [address] | | | | | [address] | [phone] | | | | | [phone] | | | +--------+ + + + [...] + + documented as of this encounter Medications at Time of Discharge + + + +---------+--------+ + | Medication | Sig | Dispensed | Refills | Start | End Date | | | | | | Date | | + + + +---------+--------+ + | albuterol 90 | Inhale 2 puffs into | | 0 | | | | mcg/puff inhaler | the lungs every 6 | | | | | | | hours as needed. | | | | | + + + +---------+--------+ + | clonazePAM | Take 1 mg by mouth 3 | | 0 | | | | (KLONOPIN) 1 mg | times daily as | | | | | | tablet | needed. | | | | | + + + +---------+--------+ + | DULoxetine | Take 60 mg by mouth | | 0 | | | | (CYMBALTA) 60 MG | Daily. | | | | | | capsule | | | | | | + + + +---------+--------+ + | | Inhale 1 puff into | | 0 | | | | fluticasone-salmeter | the lungs Twice | | | | | | ol (ADVAIR) 250-50 | Daily. | | | | | | mcg/puff diskus | | | | | | | inhaler | | | | | | + + + +---------+--------+ + | InFLIXimab | Inject into the | | 0 | | | | (REMICADE IV) | vein. | | | | | + + + +---------+--------+ + | leflunomide | Take 20 mg by mouth | | 0 | | | | (ARAVA) 20 mg tablet | Daily. | | | | | + + + +---------+--------+ + | Multiple | Take by mouth. | | 0 | | | | Vitamins-Minerals | | | | | | | (MULTIVITAMIN PO) | | | | | | + + + +---------+--------+ + | Probiotic Product | Take by mouth. | | 0 | | | | (PROBIOTIC DAILY PO) | | | | | | + + + +---------+--------+ + | zolpidem (AMBIEN) | Take 10 mg by mouth | | 0 | | | | 10 mg tablet | nightly as needed. | | | | | + + + +---------+--------+ + documented as of this encounter Plan [...] 2018 | Visit | | BHUMIKA Ellis [address] | | | | | | [place] [address] | | | | | | [place] [address] | | | | | | [phone] | | | | | | | [...] | + +--------+ + + + | DIAGNOSTIC REPORT - | | 06/11/2014 | | | | EXTERNAL SCAN | | 12:00 AM | | | | | | PST | | | + +--------+ + + + documented in this encounter Visit Diagnoses Not on filedocumented in this encounter"
--- OUTSIDE RECORDS SUMMARY | ~2019-05-07 | XMS | Encounter Summary ---
Demographics + + + | Address | [address] | | | [place] [address] | + + + | Home Phone | | + + + | Preferred Language | Unknown | + + + | Marital Status | | + + + | Muslim Affiliation | 1041 | + + + | Race | Unknown | + + + | Ethnic Group | Unknown | + + + Author + + + | Author | [facility] | | | and Harleyana | + + + | Organization | [facility] | | | and [place] [...] Team Providers + +------+ + | Care Railroad Supervisor Of Engines Name | Role | Phone | + [...] Medicine | Delayed | Davon Ramírez | [address] | | | Required | | sleep phase | MD Pedro Luis [address] | [place] | | | | | syndrome | [place] | [place], | | | | | Restless | [place] | [place] [address] | | | | | legs ROMA | [place], [place] | Phone: | | | | | (obstructive | [address] | [phone] | | | | | sleep | Phone: | Fax: | | | | | apnea) | [phone] | [phone] | | | | | Procedures | Fax: | | | | | | [place] POLYSOM | [phone] | | | | | | 6/>YRS [...] + + | 06/11/ | Hospital | [facility] | Davon Brunner | | | 2014 | Encounter | MED CTR SLEEP | MD Pedro Luis [address] | | | | | CENTER [address] [place] | [place] [address] [facility] | | | | | [place], [place] | [place] [address] | | | | | [address] | [phone] | | | | | [phone] | | | +--------+ + + + [...] 2018 | Visit | | BHUMIKA Ellis [address] | | | | | | [place] | | | | | | [place] [address] | | | | | | [phone] | | | | | | | [...]
--- OUTSIDE RECORDS SUMMARY | ~2019-05-07 | XMS | Clinical Summary ---
Demographics + + + | Address | [address] | | | [place] [address] | + + + | Home Phone | | + + + | Preferred Language | Unknown | + + + | Marital Status | | + + + | Alevism Affiliation | Unknown | + + + | Race | Unknown | + + + | Ethnic Group | Unknown | + + + Author + + + | Author | [facility] (Historical as of | | | 02-10-19) | + + + | Organization | [facility] (Historical as of | | | 02-10-19) [...] Team Providers + +------+ + | Care Geographic Area Intelligence Officer Name | Role | Phone | [...] | | | | | | presence ([facility]), High | | | | | | [...] Patient understands that | | 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 | | [...] | + + + + + | [facility] | [address] | [place] [address] | [phone] | | LABORATORY | Blvd. | | [...] + + + | [facility] | [address] | [place] [address] | [phone] | | LABORATORY | Blvd. | | [...] | | | | using the MDRD IDKS | | | | | traceable equation. | | | + + + + + + + | Specimen | + + | Blood | + + + + + + + | Performing | Address | City/State/Zipcode | Phone Number | | Organization | | | | + + + + + | [facility] | [address] | [place] [address] | [phone] | | LABORATORY | [place]. | | [...] | [facility] | [id number] | | | | | COVENTRY | [...] [birth year]/ | Home: | [address] | | | al/Fam | | 1971 | [phone] | [place] | | | judah | | | [address][birth year] | [address] | + +--------+ +--------+ + +
--- OUTSIDE RECORDS SUMMARY | ~2019-05-07 | XMS | Encounter Summary ---
Demographics + + + | Address | [address] | | | [place] [address] | + + + | Home Phone | | + + + | Preferred Language | Unknown | + + + | Marital Status | | + + + | Episcopalian Affiliation | 1041 | + + + | Race | Unknown | + + + | Ethnic Group | Unknown | + + + Author + + + | Author | [facility] | | | and [place]ley[place] | + + + | Organization | [facility] | | | and [...] Team Providers + +------+ + | Care Marketing Analytics Lead Name | Role | Phone | + +------+ + PCP | Unavailable | + +------+ + Encounter Details +--------+ + + + + | Date | Type | Department | Care Team | Description | +--------+ + + + + | 12/26/ | Hospital | [facility] | [place], | | | 2007 - | Encounter | MED CTR MED ONC | Davina Segura MD [address] | | | | | [address] [place] | [address] [place] | | | 12/28/ | | [place] [address] | [place] [address] | | | 2007 | | [phone] | | | | | | | | | | | | Jessenia Ovalle MD | | | | | | [address] | | | | | | [place] | | | | | | [address] | | | | | | | [...] | | | | | [place] [address] | | | | | | [phone] | | | | | | | | +--------+ + + + + | 05/31/ | Clinical | Rheumatology | | | | 2018 | Support | | | | +--------+ + + + + documented as of this encounter Visit Diagnoses Not on filedocumented in this encounter"
--- OUTSIDE RECORDS SUMMARY | ~2019-05-07 | XMS | Encounter Summary ---
Demographics + + + | Address | [address] | | | [place] [address] | + + + | Home Phone | | + + + | Preferred Language | Unknown | + + + | Marital Status | | + + + | Hinduism Affiliation | 1041 | + + + | Race | Unknown | + + + | Ethnic Group | Unknown | + + + Author + + + | Author | [facility] | | | and [place]leyana | + + + | Organization | [facility] Louise | | | and [...] Team Providers + +------+ + | Care Roundhouse Firer/Fireman Name | Role | Phone | + [...] | SLEEP DISORDER [address] | [address] | | | | | [address] [place] | [place] | | | | | [place] [address] | [address] | | | | | [phone] | | | +--------+ + + + [...] 2018 | Visit | | BHUMIKA Ellis [address] | | | | | | [facility] | | | | | | [place] [address] | | | | | | [phone] | | | | | | | | +--------+ + + + + | 05/31/ | Clinical | Rheumatology | | | | 2019 | Support | | | | +--------+ + + + + documented as of this encounter Visit Diagnoses Not on filedocumented in this encounter"
--- OUTSIDE RECORDS SUMMARY | ~2019-05-07 | XMS | Encounter Summary ---
Demographics + + + | Address | [address] | | | [place] [address] | + + + | Home Phone | | + + + | Preferred Language | Unknown | + + + | Marital Status | | + + + | Alevism Affiliation | 1041 | + + + | Race | Unknown | + + + | Ethnic Group | Unknown | + + + Author + + + | Author | [facility] | | | and [place]leyana | + + + | Organization | [facility] Louise | | | and [place] [...] Team Providers + +------+ + | Care Injury/Safety Hazard Assessment Name | Role | Phone | + [...] | | | unspecified | [place], | [address] | | | | | rheumatoid | [place] [address] | Phone: | | | | | factor | Phone: | [phone] | | | | | presence | [phone] | Fax: | | | | | (HCC) | Fax: | [phone] | | | | | Procedures | [phone] | | | | | | [place] | | | | | | | TOCILIZUMAB | | | | | | | INJECTION, 1 | | | | | | | EACH IN | | | | | | | [...] + + | 04/05/ | Clinical | [facility] | | Rheumatoid | | 2019 | Support | RHEUMATOLOGY | | arthritis, involving | | | | INFUSION [address] | | unspecified site, | | | | [address] | | unspecified | | | | [place] | | rheumatoid factor | | | | [address] | | presence (HCC) | | | | [phone] | | (Primary Dx) | +--------+ + [...] in this encounter Patient Instructions Patient Instructions Leslie Mercer RN - 04/05/2019 7:50 AM PDTContinue activities as before your infusion, with rest as needed. Continue all medications unless otherwise directe d by your physician. You should seek immediate [...] triage nurse please call our office at [phone] and ask to speak with a triage nurse. To reach the infusion foreign exchange position clerk nisa ext. [phone] documented in this encounter Progress Notes Leslie Mercer RN - 04/05/2019 7:50 AM PDTPatient did well, with no adverse reactions. Leslie Mercer RN P DTdocumented in this encounter Plan of Treatment +--------+ [...] [place] | | | | | | [place] [address] | | | | | | [phone] | | | | | | | [...] 800 mg in | New Bag | 04/05/20 | 800 mg | 140 | | | sodium chloride 0.9% 140 mL IVPB | | 19 8:13 | | mL/hr | | | 800 mg, Intravenous, Administer | | AM PDT | | | | | over 1 Hours, ONCE, [facility] 04/05/19 | | | | | | | at 0830, For 1 dose, This order | | [...]
--- OUTSIDE RECORDS SUMMARY | ~2019-05-07 | XMS | Encounter Summary ---
Demographics + + + | Address | [address] | | | [place] [address] | + + + | Home Phone | | + + + | Preferred Language | Unknown | + + + | Marital Status | | + + + | Uatsdin Affiliation | 1041 | + + + | Race | Unknown | + + + | Ethnic Group | Unknown | + + + Author + + + | Author | [facility] | | | and [place]leyana | + + + | Organization | [facility] | | | and [place] [...] Team Providers + +------+ + | Care Lead Sewage Plant Operator Name | Role | Phone | [...] | | | unspecified | [place], | [address] | | | | | rheumatoid | [place] [address] | Phone: | | | | | factor | Phone: | [phone] | | | | | presence | [phone] | Fax: | | | | | (HCC) | Fax: | [phone] | | | | | Procedures | [phone] | | | | | | [place] | | | | | | | TOCILIZUMAB | | | | | | | INJECTION, 1 | | | | | | | EACH [place] | | | | | | | [...] + + | 04/05/ | Clinical | [facility] | | Rheumatoid | | 2019 | Support | RHEUMATOLOGY | | arthritis, involving | | | | INFUSION [address] | | unspecified site, | | | | [address] | | unspecified | | | | [place] | | rheumatoid factor | | | | [address] | | presence (HCC) | | | | [phone] | | (Primary Dx) | +--------+ + [...] triage nurse please call our office at [phone] and ask to speak with a triage nurse. To reach the infusion mill order scheduler nisa ext. [phone] documented in this [...] [place] | | | | | | [place] [address] | | | | | | [phone] | | | | | | | [...] | | | over 1 Hours, ONCE, [facility] 04/05/19 | | | | | [...]
--- OUTSIDE RECORDS SUMMARY | ~2019-05-07 | XMS | Encounter Summary ---
Demographics + + + | Address | [address] | | | [place] [address] | + + + | Home Phone | | + + + | Preferred Language | Unknown | + + + | Marital Status | | + + + | Amish Affiliation | Unknown | + + + | Race | Unknown | + + + | Ethnic Group | Unknown | + + + Author + + + | Author | [facility] (Historical as of | | | 02-10-19) | + + + | Organization | [facility] (Historical as of | | | 02-10-19) [...] Team Providers + +------+ + | Care Production Bow Maker Name | Role | Phone | [...] | | | | arthritis, | PA-C [address] | [address] | | | | | involving | [address] | [address] | | | | | unspecified | Place | [place] | | | | | site, | [place] | [address] | | | | | unspecified | [place] [address] | Phone: | | | | | rheumatoid | Phone: | [phone] | | | | | factor | [phone] | Fax: | | | | | presence | Fax: | [phone] | | | | | ([facility]) | [phone] | | | | | | Procedures [...] + + | 02/07/ | Clinical | [facility] | Kelsey [place], | Rheumatoid | | 2019 | Support | Rheumatology | RN | arthritis, involving | | | | Infusion [address] | | unspecified site, | | | | [address] | | unspecified | | | | [place] [address] | | rheumatoid factor | | | | [phone] | | presence (HCC) | | | [...] in this encounter Instructions Patient Instructions - Kelsey Oneal RN - 02/07/2019 12:40 PM PDT [...] triage nurse please call our office at [phone] ext [phone] To reach the infusion rn geriatric nisa ext. [phone] in this encounter Progress Notes Radha Hall [...] + + + | [facility] | [address] | [place] [address] | [phone] | | LABORATORY | Blvd. | | [...] + + + | [facility] | [address] | [place] [address] | [phone] | | LABORATORY | Blvd. | | [...] 0.9 | 0.1 - 1.5 mg/dL | [facility] | | | | | LABORATORY | + + + + + | ALK PHOS | 79 | 35 - 115 U/L | [facility] | | | | | LABORATORY | + + + + + | AST | 35 | 10 - 45 U/L | [facility] | | | | | LABORATORY | + + + + + | ALT | 46 | 10 - 65 U/L | [facility] | | | | | LABORATORY | + + + + + | EGFR | >60Comment: GFR <60: | >60 mL/min/1.73_m2 | [facility] | | | CHRONIC KIDNEY DISEASE, | [...] | + + + + + | [facility] | [address] | [place] [address] | [phone] | | LABORATORY | Blvd. | | [...] | + + + + + | [facility] | [address] | [place] [address] | [phone] | | LABORATORY | Blvd. | | [...]
--- OUTSIDE RECORDS SUMMARY | ~2019-05-07 | XMS | Encounter Summary ---
Demographics + + + | Address | [address] | | | [place] [address] | + + + | Home Phone | | + + + | Preferred Language | Unknown | + + + | Marital Status | | + + + | Buddhism Affiliation | 1041 | + + + | Race | Unknown | + + + | Ethnic Group | Unknown | + + + Author + + + | Author | [facility] | | | and [place]leyana | + + + | Organization | [facility] | | | and [place] [...] Providers + +------+ + | Care Senior Manufacturing Supervisor Name | Role | Phone | + +------+ + | Laisha Quarles NP | PCP | | + +------+ + Encounter Details +--------+ + + + + | Date | Type | Department | Care Team | Description | +--------+ + + + + | 01/28/ | Orders Only | [facility] | Chel Henry | | | 2019 | | RHEUMATOLOGY [address] | BHUMIKA Ellis [address] | | | | | [address] | [facility] | | | | | [place] | [place] [address] | | | | | [address] | [phone] | | | | | [phone] | | | +--------+ + + + [...] 2018 | Visit | | BHUMIKA Ellis [address] | | | | | | [place] | | | | | | [place] [address] | | | | | | [phone] | | | | | | | | +--------+ + + + + | 05/31/ | Clinical | Rheumatology | | | | 2018 | Support | | | | +--------+ + + + + documented as of this encounter Visit Diagnoses Not on filedocumented in this encounter"
--- OUTSIDE RECORDS SUMMARY | ~2019-05-07 | XMS | Encounter Summary ---
Demographics + + + | Address | [address] | | | [place] [address] | + + + | Home Phone | | + + + | Preferred Language | Unknown | + + + | Marital Status | | + + + | Worship Affiliation | 1041 | + + + | Race | Unknown | + + + | Ethnic Group | Unknown | + + + Author + + + | Author | [facility] | | | and [place] | + + + | Organization | [facility] | | | and [place] [...] Team Providers + +------+ + | Care Melting Furnace Skimmer Name | Role | Phone | + [...] + + | 12/18/ | Office | [facility] | Davon Brunner | Low ferritin | | 2014 | Visit | SLEEP DISORDER [address] | , [address] | (Primary Dx); ROMA | | | | [address] [place] | [address] [place] | (obstructive sleep | | | | [place] [address] | [place] [address] | apnea); Restless | | | | [phone] | [phone] | legs syndrome | | | | [...] night, making your sleep fragmented with a wool batting worker stage of sleep. Even t bubba you do not remember waking up many times during the night to a wool batting worker sleep, you feel tired the next day. [...] block the airway when you re asleep. [id number] [employer]. [address] [place] [address]. All righ ts reserved. This information is [...] "Split-Night" Protocol on 06/11/2014 on referral from [facility] because of sleep fragmentation, fatigue, and possible Obstructive Sleep Apnea. 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 Technical Information: Please see technical data stored as Polysomnography under "Media" se ction in the [facility] EMR. Definitions (The AASM Manual for the [...] there were 65 obstructive apneas, 0 mixed metal bed assembler eas, 0 central apneas, 172 hypopneas, and [...] | | | | | [place] [address] | | | | | | [phone] | | | | | | | [...]
--- OUTSIDE RECORDS SUMMARY | ~2019-05-07 | XMS | Encounter Summary ---
Demographics + + + | Address | [address] | | | [place] [address] | + + + | Home Phone | | + + + | Preferred Language | Unknown | + + + | Marital Status | | + + + | Restorationism Affiliation | 1041 | + + + | Race | Unknown | + + + | Ethnic Group | Unknown | + + + Author + + + | Author | [facility] | | | and [place] | + + + | Organization | [facility] | | | and [place] [...] Team Providers + +------+ + | Care Dinkey Engine Firer Name | Role | Phone | + [...] Medicine | Delayed | Davon Ramírez | [place] [address] | | | Required | | sleep phase | MD Pedro Luis [address] | [address] | | | | | syndrome | [address] [place] | [place], | | | | | Restless | St [place] | [place] [address] | | | | | legs ROMA | [place], [place] | Phone: | | | | | (obstructive | [address] | [phone] | | | | | sleep | Phone: | Fax: | | | | | apnea) | [phone] | [phone] | | | | | Procedures | Fax: | | | | | | [place] POLYSOM | [phone] | | | | | | 6/>YRS [...] | Medicine / | (adult) | | [facility] | | | | Sleep | (pediatric) | [facility] | [facility] | | | | Medicine | consult | [facility], | [place], [place] | | | | | [email or web address] | [place] [address] | [address] Phone: | | | | | Procedures | Phone: | [phone] | | | | | NEW PATIENT | [phone] | Fax: | | | | | | Fax: | [phone] | | | | | | [phone] | | +--------+--------+ + + + + [...] Dx); ROMA | | | | [address] [place] | [address] [place] | (obstructive sleep | | | | [place] [address] | [place] [address] | apnea); Delayed | | | | [phone] | [phone] | sleep phase | | | | [...] your sleep. Avoid alcohol, nicotine, and caffeine. 3342-0770 [employer]. [address] [place] [address]. All righ ts reserved. This information is [...] you will have a private bedroom. A copier field service technician dom l attach many sensors to your body, then go into another room. As you sleep, your heart rate , breathing, oxygen level, brain activity, and other functions will be tracked. A microphone and video camera will record your breathing sounds and body movements. The copier field service technician will keep watch nearby. If you [...] may be the right ones for you. [phone] [employer]. [address] [place] [address]. All righ ts reserved. This information is not intended as a substitute for professional medical care. Always follow your healthcare professional's instructions. documented in this encounter Progress Notes Davon Brunner Jr., MD - 06/05/2014 10:49 AM PSTFormatting of this note might be differen t from the original. Alicia [facility] [place] [address] Ref: Laisha Quarles NP CC: Chief Complaint [...] Social History Narrative Lives in house with (senior environmental technician). Review of Systems: Constitutional: Denies unexplained fevers, [...] Review: The score of 8 on the Stamps Sleepiness scale suggests mild recogni zed excessive [...] Insomnia Severity Index Insomnia Severity Index 28 Stamps Sleepiness Scale Sitting and reading 1 Watching [...] | | | | | [place] [address] | | | | | | [phone] | | | | | | | [...] + | [facility] | [address] | [place] | [phone] | | [facility] | | [address] | | | - LABORATORY | | | | + + + + + | [facility] | [address] | [place] | | | [facility] | | [address] | | | - LABORATORY | | [...]
--- OUTSIDE RECORDS SUMMARY | ~2019-05-07 | XMS | Encounter Summary ---
Demographics + + + | Address | [address] | | | [place] [address] | + + + | Home Phone | | + + + | Preferred Language | Unknown | + + + | Marital Status | | + + + | Gnosticist Affiliation | 1041 | + + + | Race | Unknown | + + + | Ethnic Group | Unknown | + + + Author + + + | Author | [facility] | | | and [place] | + + + | Organization | [facility] | | | and [place] | [...] Team Providers + +------+ + | Care Hardboard Press Operator Name | Role | Phone | [...] | | | unspecified | [place], | [address] | | | | | rheumatoid | [place] [address] | Phone: | | | | | factor | Phone: | [phone] | | | | | presence | [phone] | Fax: | | | | | (HCC) | Fax: | [phone] | | | | | Procedures | [phone] | | | | | | [place] | | | | | | | TOCILIZUMAB | | | | | | | INJECTION, 1 | | | | | | | EACH [place] | | | | | | | [...] + + | 03/07/ | Clinical | [facility] | | Rheumatoid | | 2019 | Support | RHEUMATOLOGY | | arthritis, involving | | | | INFUSION [address] | | unspecified site, | | | | [address] | | unspecified | | | | [place] | | rheumatoid factor | | | | [address] | | presence (HCC) | | | | [phone] | | (Primary Dx) | +--------+ + [...] triage nurse please call our office at [phone] and ask to speak with a triage nurse. To reach the infusion patient scheduler nisa ext. [phone] documented in this [...] 2018 | Visit | | BHUMIKA Ellis [address] | | | | | | [place] | | | | | | [place] [address] | | | | | | [phone] | | | | | | | [...]
--- OUTSIDE RECORDS SUMMARY | ~2019-05-07 | XMS | Encounter Summary ---
Demographics + + + | Address | [address] | | | [place] [address] | + + + | Home Phone | | + + + | Preferred Language | Unknown | + + + | Marital Status | | + + + | Roman Catholic Affiliation | 1041 | + + + | Race | Unknown | + + + | Ethnic Group | Unknown | + + + Author + + + | Author | [facility] | | | and [place] | + + + | Organization | [facility] | | | and [...] Team Providers + +------+ + | Care Commodity Loan Clerk Name | Role | Phone | + +------+ + PCP | Unavailable | + +------+ + Encounter Details +--------+ + + + + | Date | Type | Department | Care Team | Description | +--------+ + + + + | 12/23/ | Hospital | [facility] | Her[place], | | | 2007 | Encounter | MED CTR EMERGENCY | Uriel Brown MD [address] | | | | | [place] [address] | [place] | | | | | [place] | [place] [address] | | | | | [address] | [phone] | | | | | [phone] | | | +--------+ + + + [...] | | | | | [place] [address] | | | | | | [phone] | | | | | | | | +--------+ + + + + | 05/31/ | Clinical | Rheumatology | | | | 2018 | Support | | | | +--------+ + + + + documented as of this encounter Visit Diagnoses Not on filedocumented in this encounter"
--- OUTSIDE RECORDS SUMMARY | ~2019-05-07 | XMS | Encounter Summary ---
Demographics + + + | Address | [address] | | | [place] [address] | + + + | Home Phone | | + + + | Preferred Language | Unknown | + + + | Marital Status | | + + + | Hoahaoism Affiliation | 1041 | + + + | Race | Unknown | + + + | Ethnic Group | Unknown | + + + Author + + + | Author | [facility] | | | and [place] | + + + | Organization | [facility] | | | and [...] Team Providers + +------+ + | Care Wing Commander Name | Role | Phone | + [...] + + | 02/20/ | Refill | [facility] | Chel Henry | Medication Refill | | 2019 | | [address]OLOGY [address] | BHUMIKA Ellis [address] | | | | | [address] | [address] [facility] [address] | | | | | [place], [place] | [place] [address] | | | | | [address] | [phone] | | | | | [phone] | | | +--------+--------+ + + + [...] | | 2019 | Visit | | BHUMKIA Ellis [address] | | | | | | [facility] | | | | | | [place] [address] | | | | | | [phone] | | | | | | | | +--------+ + + + + | 05/31/ | Clinical | Rheumatology | | | | 2019 | Support | | | | +--------+ + + + + documented as of this encounter Visit Diagnoses Not on filedocumented in this encounter"
--- OUTSIDE RECORDS SUMMARY | ~2019-05-07 | XMS | Encounter Summary ---
Demographics + + + | Address | [address] | | | [place] [address] | + + + | Home Phone | | + + + | Preferred Language | Unknown | + + + | Marital Status | | + + + | Gnosticism Affiliation | 1041 | + + + | Race | Unknown | + + + | Ethnic Group | Unknown | + + + Author + + + | Author | [facility] | | | and [place] | + + + | Organization | [facility] [...] Team Providers + +------+ + | Care Evp Strategy Name | Role | Phone | + +------+ + | Laisha Quarles NP | PCP | | + +------+ + Encounter Details +--------+ + + + + | Date | Type | Department | Care Team | Description | +--------+ + + + + | 02/09/ | Orders Only | [facility] | Chel Henry | Other industrial relations worker | | 2019 | | RHEUMATOLOGY [address] | BHUMIKA Ellis [address] | (current) drug | | | | [address] | [address] | therapy; Rheumatoid | | | | [place] | [place] [address] | arthritis (HCC); | | | | [address] | [phone] | Response to | | | | [phone] | | cell-mediated gamma | | | | | | interferon antigen | | | | | | without active | | | | | | tuberculosis | +--------+ + + + + Social [...] 2019 | Visit | | BHUMIKA Ellis [address] | | | | | | [place] | | | | | | [place] [address] | | | | | | [phone] | | | | | | | | +--------+ + + + + | 05/31/ | Clinical | Rheumatology | | | | 2018 | Support | | | | +--------+ + + + + + +------+--------+ + + | Name | Type | Priori | Associated Diagnoses | Order Schedule | | | | ty | | | + +------+--------+ + + | Lipid Panel | Lab | Routin | Other industrial relations worker | Expected: | | | | e | (current) drug | 04/19/2018, Expires: | | | | | therapy | 04/12/2019 | + +------+--------+ + + | CBC with | Lab | Routin | Rheumatoid | 1 Occurrences | | Differential | | e | arthritis (HCC) | starting 02/09/2019 | | | | | Other fdc | until 08/16/2019 | | | | | (current) drug | | | | | | therapy | | + +------+--------+ + + | Comprehensive | Lab | Routin | Rheumatoid | 1 Occurrences | | Metabolic Panel | | e | arthritis ([facility]) | starting 02/09/2019 | | | | | Other fdc | until 08/16/2019 | | | | | (current) drug | | | | | | therapy | | + +------+--------+ + + | Sedimentation Rate | Lab | Routin | Rheumatoid | 1 Occurrences | | | | e | arthritis ([facility]) | starting 02/09/2019 | | | | | Other industrial relations worker | until 08/16/2019 | | | | | (current) drug | | | | | | therapy | | + +------+--------+ + + | C-Reactive Protein | Lab | Routin | Rheumatoid | 1 Occurrences | | | | e | arthritis ([facility]) | starting 02/09/2019 | | | | | Other fdc | until 08/16/2019 | | | | | (current) drug | | | | | | therapy | | + +------+--------+ + + | Lipid Panel | Lab | Routin | Rheumatoid | Expected: | | | | e | arthritis ([facility]) | 11/23/2018, Expires: | | | | | | 02/14/2019 | + +------+--------+ + + | Comprehensive | Lab | Routin | Other industrial relations worker | Expected: | | Metabolic Panel | | e | (current) drug | 12/04/2018, Expires: | | | | | therapy | 03/06/2019 | + +------+--------+ + + | C-Reactive Protein | Lab | Routin | Other industrial relations worker | Expected: | | | | e | (current) drug | 12/04/2018, Expires: | | | | | therapy | 03/06/2019 | + +------+--------+ + + | Misc Lab Referral | Lab | Routin | Response to | Expected: | | | | e | cell-mediated gamma | 01/15/2019, Expires: | | | | | interferon antigen | 01/16/2020 | | | | | without active | | | | | | tuberculosis | | + +------+--------+ + + documented as of this encounter Visit Diagnoses + + | Diagnosis | + + | Other industrial relations worker (current) drug therapy | + + | Rheumatoid arthritis (HCC) | + + | Response to cell-mediated gamma interferon antigen without active tuberculosis | | Nonspecific reaction to cell mediated immunity measurement of gamma interferon antigen | | response without active tuberculosis | + + documented in this encounter"
--- OUTSIDE RECORDS SUMMARY | ~2019-05-07 | XMS | Encounter Summary ---
Demographics + + + | Address | [address] | | | [place] [address] | + + + | Home Phone | | + + + | Preferred Language | Unknown | + + + | Marital Status | | + + + | Religion Affiliation | 1041 | + + + | Race | Unknown | + + + | Ethnic Group | Unknown | + + + Author + + + | Author | [facility] | | | and [place] | + + + | Organization | [facility] | | | and [place] [...] Team Providers + +------+ + | Care Cook Chill Technician Name | Role | Phone | [...] Jordana BALTAZAR | | | | | [address] [place], [place] | [place] [address] | | | | | [address] | | | | | | [phone] | | | +--------+ + + + [...] 2018 | Visit | | BHUMIKA Ellis [address] | | | | | | [place] | | | | | | [place] [address] | | | | | | [phone] | | | | | | | | +--------+ + + + + | 05/31/ | Clinical | Rheumatology | | | | 2018 | Support | | | | +--------+ + + + + documented as of this encounter Visit Diagnoses Not on filedocumented in this encounter"
--- OUTSIDE RECORDS SUMMARY | ~2019-05-07 | XMS | Encounter Summary ---
Demographics + + + | Address | [address] | | | [place] [address] | + + + | Home Phone | | + + + | Preferred Language | Unknown | + + + | Marital Status | | + + + | Adventist Affiliation | 1041 | + + + | Race | Unknown | + + + | Ethnic Group | Unknown | + + + Author + + + | Author | [facility] | | | and [place] | + + + | Organization | [facility] | | | and [place] | [...] Team Providers + +------+ + | Care Burnisher And Bumper Name | Role | Phone | + +------+ + | Unknown, Doctor | PCP | | + +------+ + Reason for Visit + + + | Reason | Comments | + + + | Rheumatology | | | Appointment | | + + + Encounter Details +--------+---------+ + + + | Date | Type | Department | Care Team | Description | +--------+---------+ + + + | 09/11/ | Office | [facility] | Chel Henry | Rheumatoid | | 2019 | Visit | R[address]UMATOLOGY [address] | BHUMIKA Ellis [address] | arthritis, involving | | | | [address] | [address] | unspecified site, | | | | [place], [place] | [place] [address] | unspecified | | | | [address] | [phone] | rheumatoid factor | | | | [phone] | | presence (HCC) | | | [...] | | | | presence (HCC) | +--------+---------+ + + + Social History [...] + + + | Blood Pressure | 142/80 | 03/07/2019 1:40 PM | | | | | PDT | | + + + + + | Pulse | 76 | 03/07/2019 1:40 PM | | | | | PDT [...] + + + + | Weight | 156 kg (344 lb) | 03/07/2019 1:40 PM | | | | | PDT | | + + + + + | Height | - | - | | + + + + + | Body Mass Index | 52.31 | 11/23/2018 1:42 PM | | | | | PDT | | + + + + + documented in this encounter Patient Instructions Patient Instructions Krishan Hall, Enterprise Solutions Architect - 03/07/2019 1:30 PM PDTWe hop e that you have experienced exceptional care today and that you found our service to be cour teous and helpful. If you have any questions or need medication refills you can send us a message/request u [employer] or call our office at [phone]. To reach Alexa ALEXIS use ext [phone] To reach Krishan ALEXIS use ext [phone] If you are unable to reach a nurse during clinic hours, please leave a detailed message. We check our messages often and return calls in a timely manner during clinic hours. Orders for labs or imaging: Please remember that Chel will only call you if somethi ng of concern needs to be addressed, otherwise all result will be discussed at your next off ice visit. You can also look at your results on [facility]. If you are experiencing an emergency, please call 911 Continue activities as before your infusion, with rest [...] triage nurse please call our office at [phone] ext [phone] To reach the infusion planner scheduler nisa ext. [phone] documented in this encounter Progress Notes Chel Henry PA-C - 03/07/2019 1:30 PM PDTFormatting of this note might be diff erent from the original. Subjective: Patient ID: Radha Howard is a 48 y.o. female. Rheumatological History Patient was diagnosed in 2008 with an initial presentation of pain and swelling in her hand s and knees. Serology:Positive RF, Positive anti-CCP and Negative DAVION Pertinent Imaging:Erosive changes in hands and Erosive change in feet Tried and failed oral DMARDs include: sulfasalazine, methotrexate, plaquenil Tried and failed biologic DMARDs include: Enbrel and Humira, Remicaide infusions (BEKA) Past medical history does include: depression, anemia I Krishan ALEXIS am personally taking down the notes in the presence of Chel Henry PA-C. History of Present Illness Here for: Rheumatoid Arthritis Here for: IV infusion Last seen: 11/23/2018 Any changes in overall health since last visit: no Current rheumatological medications: Arava 20mg daily,IVActemra Current rheumatological complaint: (RA) Patient is doing well, denies new rashes, chest deo n and SOB. Patient doing well, denies significant joint pain or swelling today. States she i s happy with her weight loss and continues to walk 5 miles daily Location: hands,knees Morning stiffness lasting <30 mins Quality: ache Severity: mild Duration: chronic Timing:intermittent Aggravated by:activity Relieved by:medication Denies: infection, fever and abdominal pain Patient's medications, allergies, past medical, surgical, social and family histories were obtained and reviewed as appropriate. Review of Systems Constitutional: Negative for fever. HENT: Negative for mouth sores and sore throat. Eyes: Negative for pain, discharge and redness. Respiratory: Negative for shortness of breath and wheezing. Cardiovascular: Negative for chest pain. Gastrointestinal: Negative for abdominal pain, constipation, diarrhea, nausea and vomiting. Genitourinary: Negative for dysuria. Musculoskeletal: Positive for arthralgias. Negative for joint swelling. Skin: Negative for rash and wound. Neurological: Negative for dizziness and headaches. Chel Cannon PA-C, reviewed the above ROS. Objective: BP 142/80 | Pulse 76 | Wt (!) 156 kg (344 lb) | BMI 52.31 kg/m Physical Exam Constitutional: She appears well-developed and well-nourished. HENT: Nose: No nasal deformity. Mouth/Throat: Uvula is midline and mucous membranes are normal. No oropharyngeal exudate. Eyes: Conjunctivae and EOM are normal. No scleral icterus. Cardiovascular: Normal rate and regular rhythm. Pulmonary/Chest: Effort normal and breath sounds normal. Musculoskeletal: See homunculus for tender and swollen joints. Fists- Able to make complete fists Feet/MTPs- mild hallux valgus Lymphadenopathy: She has no cervical adenopathy. Neurological: She is alert. Skin: Skin is warm and dry. No rash noted. COCHRAN-28 (ESR): 2.86 (Low disease activity) Lab Data: Lab Results Component Value Date WBC 10.16 02/07/2019 HGB 13.9 02/07/2019 MCV 90.0 02/07/2019 LABPLAT 199 02/07/2019 Lab Results Component Value Date GLUF 143 (H) 02/07/2019 GLUF 192 (H) 08/23/2018 NA 139 02/07/2019 K 4.0 02/07/2019 CL 105 02/07/2019 CALCIUM 9.4 02/07/2019 CO2 29 02/07/2019 ALT 46 02/07/2019 AST 35 02/07/2019 EGFR >60 02/07/2019 Lab Results Component Value Date CRP 0.7 (H) 02/07/2019 No components found for: SEDRATE Imaging: Laboratory results were reviewed in [facility] as well as chart notes and imaging from other prov ider(s) since their last rheumatology clinic visit, Please see the EMR for further detail. Assessment and Plan: Visit Diagnoses and Associated Orders: Problem List Items Addressed This Visit Musculoskeletal Primary osteoarthritis involving multiple joints Patient is taking OTC analgesics PRN for pain. Discussed the utility of omega fatty acid and glucosamine/chondroitin supplements. Encouraged weight loss and exercise. Rheumatoid arthritis (HCC) Responding well to current treatment plan. No change in treatment plan. Patient understan ds that treatment is longwall headgate operator and if patient fails to continue regimen , the disease has pr opensity to flare. RESOLVED: Rheumatoid arthritis (HCC) - Primary Other High risk medication use Basic labs Monitored (CBC,CMP and ESR): Update Labs routinely ordered due to high risk medication use- Monitored for cytopenias, liver tox icity, renal dysfunction and disease activity. Hepatitis panelnegative 2013 This will be checked every 5 years based on patients risk or at time of biologic drug kuhn e. Chest x-raysatisfactory 2015 No evidence of cardiopulmonary disease TB testnegative 12/2018 This dom be checked yearly as long as the patient remains on a biologic. Patient is at risk for exposure in geographical area and the biologic immunodepressant has the potential to ac tivate latent TB. Lipid panelsatisfactory 10/2018 Patient is taking Actemra which has shown a potential to increase cholesterol in some cases . This will be checked every 6 months. Risks and benefits of a treatment plan were explained to patient. Patient will follow up with their primary care physician in regards to non-rheumatological symptoms listed under review of systems. Patient was advised to contact our office if there are any change in their symptoms. This is a patient with multiple medical problems that require considerable time and reflect ion in order to properly evaluate and manage. Avoidance of adverse drug interactions and opt imization of treatment/therapy is the primary goal. Complex analysis and decision making was involved in today's visit. I,Chel Henry PA-C, personally performed the services described in this documentation, with the scribe in my presence, and it is both accurate and complete. Dictation software Dragon/dictation services used, which may contain error for similar soun ding words even after review. Please do not hesitate to contact me for any clarification. Procedures: Procedures do cumented in this encounter Plan of Treatment +--------+ [...] 2018 | Visit | | BHUMIKA Ellis [address] | | | | | | [place] | | | | | | [place] [address] | | | | | | [phone] | | | | | | | [...] (HCC) - Primary | + + | Primary osteoarthritis involving multiple joints | + + | High risk medication use Encounter for long-term (current) use of other medications | + + | Rheumatoid arthritis involving multiple sites, unspecified rheumatoid factor presence | | (HCC) | + + documented in this encounter"
--- OUTSIDE RECORDS SUMMARY | ~2019-05-07 | XMS | Encounter Summary ---
Demographics + + + | Address | [address] | | | [place] [address] | + + + | Home Phone | | + + + | Preferred Language | Unknown | + + + | Marital Status | | + + + | Hindu Affiliation | 1041 | + + + | Race | Unknown | + + + | Ethnic Group | Unknown | + + + Author + + + | Author | [facility] | | | and [place] | + + + | Organization | [facility] | | | and [place] [...] Team Providers + +------+ + | Care Grab Hooker Name | Role | Phone | + +------+ + PCP | Unavailable | + +------+ + Encounter Details +--------+ + + + + | Date | Type | Department | Care Team | Description | +--------+ + + + + | 12/07/ | Hospital | [facility] | Angely Floyd | | | 2007 | Encounter | [facility] | Imelda Cary MD [address] | | | | [address] | [facility] | | | | | [place] | [place] [address] | | | | | [address] | [phone] | | | | | [phone] | | | +--------+ + + + [...] | | | | | [place] [address] | | | | | | [phone] | | | | | | | | +--------+ + + + + | 05/31/ | Clinical | Rheumatology | | | | 2018 | Support | | | | +--------+ + + + + documented as of this encounter Visit Diagnoses Not on filedocumented in this encounter"
--- OUTSIDE RECORDS SUMMARY | ~2019-05-07 | XMS | Encounter Summary ---
Demographics + + + | Address | [address] | | | [place] [address] | + + + | Home Phone | | + + + | Preferred Language | Unknown | + + + | Marital Status | | + + + | Shinto Affiliation | 1041 | + + + | Race | Unknown | + + + | Ethnic Group | Unknown | + + + Author + + + | Author | [facility] | | | and [place] | + + + | Organization | [facility] | | | and [...] Team Providers + +------+ + | Care Supervisor Travel Information Center Name | Role | Phone | + +------+ + | Laisha Quarles NP | PCP | | + +------+ + Encounter Details +--------+ + + + + | Date | Type | Department | Care Team | Description | +--------+ + + + + | 02/09/ | Orders Only | [facility] | Chel Henry | Other terminal computer operator | | 2019 | | R[address]ATOLOGY [address] | [address]UMIKA Ellis [address] | (current) drug | | | | [address] | [address] | therapy; Rheumatoid | | | | [place] | [place] [address] | arthritis (HCC); | | | | [address] | [phone] | Response to | | | | [phone] | | cell-mediated gamma | | | [...] 2019 | Visit | | BHUMIKA Ellis [address] | | | | | | [place] | | | | | | [place] [address] | | | | | | [phone] | | | | | | | [...] Panel | Lab | Routin | Other terminal computer operator | Expected: | | | | e | (current) drug | 04/19/2018, Expires: | | | | | therapy | 04/12/2019 | + +------+--------+ + + | CBC with | Lab | Routin | Rheumatoid | 1 Occurrences | | Differential | | e | arthritis (HCC) | starting 02/09/2019 | | | | | Other nursing home | until 08/16/2019 | | | | | (current) drug | | | | | | therapy | | + +------+--------+ + + | Comprehensive | Lab | Routin | Rheumatoid | 1 Occurrences | | Metabolic Panel | | e | arthritis ([facility]) | starting 02/09/2019 | | | | | Other nursing home | until 08/16/2019 | | | | | (current) drug | | | | | | therapy | | + +------+--------+ + + | Sedimentation Rate | Lab | Routin | Rheumatoid | 1 Occurrences | | | | e | arthritis ([facility]) | starting 02/09/2019 | | | | | Other terminal computer operator | until 08/16/2019 | | | | | (current) drug | | | | | | therapy | | + +------+--------+ + + | C-Reactive Protein | Lab | Routin | Rheumatoid | 1 Occurrences | | | | e | arthritis ([facility]) | starting 02/09/2019 | | | | | Other nursing home | until 08/16/2019 | | | | | (current) drug | | | | | | therapy | | + +------+--------+ + + | Lipid Panel | Lab | Routin | Rheumatoid | Expected: | | | | e | arthritis ([facility]) | 11/23/2018, Expires: | | | | | | 02/14/2019 | + +------+--------+ + + | Comprehensive | Lab | Routin | Other terminal computer operator | Expected: | | Metabolic Panel | | e | (current) drug | 12/04/2018, Expires: | | | | | therapy | 03/06/2019 | + +------+--------+ + + | C-Reactive Protein | Lab | Routin | Other terminal computer operator | Expected: | | | | e [...] | Diagnosis | + + | Other terminal computer operator (current) drug therapy | + + | Rheumatoid arthritis (HCC) | + + | Response to cell-mediated gamma interferon antigen without active tuberculosis | | Nonspecific reaction to cell mediated immunity measurement of gamma interferon antigen | | response without active tuberculosis | + + documented in this encounter"
--- OUTSIDE RECORDS SUMMARY | ~2019-05-07 | XMS | Clinical Summary ---
Demographics + + + | Address | [address] | | | [place] [address] | + + + | Home Phone | | + + + | Preferred Language | Unknown | + + + | Marital Status | | + + + | Zoroastrianism Affiliation | 1041 | + + + | Race | Unknown | + + + | Ethnic Group | Unknown | + + + Author + + + | Author | [facility] | | | and [place] | + + + | Organization | [facility] | | | and [place] [...] Team Providers + +------+ + | Care Library Cataloging Technician Name | Role | Phone | [...] Patient understands | | that treatment is long wall mining machine tender and if patient fails to continue | | regimen , the disease has propensity to flare. Last Assessment & | | Plan: Responding well to current treatment plan. No change in | | treatment plan. Patient understands that treatment is long wall mining machine tender | | and if patient fails to [...] Telephone | Rheumatology | Brad Bauer, | Creative Art Therapist | | 2018 | | | BHUMIKA | | +--------+ + + + + | 02/20/ | Refill | Rheumatology | Chel Henry | Medication Refill | | 2018 | | | [place] | | +--------+ + + + + | 02/09/ | Orders Only | Rheumatology | Chel Henry | Other intermediate | | 2018 | | | BHUMIKA [...] | | | | | [place] [address] | | | | | | [phone] | | | | | | | [...] +--------+ +---------+--------+ | [employer] | PACIFI | [id number] | 06/27/19 | [phone] | | PPO [...] | 1970 | [phone] | [place] [address] | | | judah | | | 4 (Home) | | + +--------+ +--------+ + + | Radha Howard | Person | Self | [birth year] | [address] | | | al/Fam | | 1971 | [phone] | [place] [address] | | | judah | | | 4 (Home) | | + +--------+ +--------+ + + Advance Directives + + + + + | Type | Date Recorded | Patient | Explanation | | | | [employer] | | + + + + + | Power of | | | | | Frog Shaker | | | | + + + + + | Advance | 06/05/2014 | | | | Directive | 12:18 PM | | | + + + + +
--- OUTSIDE RECORDS SUMMARY | ~2019-05-07 | XMS | Encounter Summary ---
Demographics + + + | Address | [address] | | | [place] [address] | + + + | Home Phone | | + + + | Preferred Language | Unknown | + + + | Marital Status | | + + + | Holiness Affiliation | 1041 | + + + | Race | Unknown | + + + | Ethnic Group | Unknown | + + + Author + + + | Author | [facility] | | | and [place] | + + + | Organization | [facility] | | | and [...] Team Providers + +------+ + | Care Human Factors Engineer Name | Role | Phone | + +------+ + | Laisha Quarles NP | PCP | | + +------+ + Encounter Details +--------+ + + + + | Date | Type | Department | Care Team | Description | +--------+ + + + + | 06/05/ | [facility] | [facility] | Davon Brunner | Restless legs | | 2013 | Encounter | MED CTR LABOR[facility]ORY | MD Pedro Luis [address] | | | | | [address] [place] | [address] [place] | | | | | [place], [place] | [place] [address] | | | | | [address] | [phone] | | | | | [phone] | | | +--------+ + + + [...] 2018 | Visit | | BHUMIKA Ellis [address] | | | | | | [place] | | | | | | [place] [address] | | | | | | [phone] | | | | | | | [...] | + +--------+ + + + | FERRITIN | Routin | 06/05/2014 | Restless legs | Results for this | | | e | 12:23 PM | | procedure are in the | | | | PST | | results section. | + +--------+ + + + documented in this encounter Results Ferritin (06/05/2014 12:23 PM PST) + +-------+ + + + | Component | Value | Ref Range | Performed | Pathologist | | | | | At | Signature | + +-------+ + + + | FERRITIN | 21 | 11-<307 ng/mL | [facility] | | | | [facility] [...] + | [facility] | [address] | [place], [place] | [phone] | | [facility] | | [address] | | | - LABORATORY | | | | + + + + + | [facility] | [address] | [place], [place] | | | [facility] | | [address] | | | - LABORATORY | | | | + + + + + documented in this encounter Visit Diagnoses + + | Diagnosis | + + | Restless legs Restless legs syndrome (RLS) | + + documented in this encounter"
--- OUTSIDE RECORDS SUMMARY | ~2019-05-07 | XMS | Encounter Summary ---
Demographics + + + | Address | [address] | | | [place] [address] | + + + | Home Phone | | + + + | Preferred Language | Unknown | + + + | Marital Status | | + + + | Sabianism Affiliation | 1041 | + + + | Race | Unknown | + + + | Ethnic Group | Unknown | + + + Author + + + | Author | [facility] | | | and [place] | + + + | Organization | [facility] | | | and [place] [...] Team Providers + +------+ + | Care Master Sheet Clerk Name | Role | Phone | + +------+ + | Laisha Quarles NP | PCP | | + +------+ + Encounter Details +--------+ + + + + | Date | Type | Department | Care Team | Description | +--------+ + + + + | 06/05/ | [facility] | [facility] | Davon Brunner | Restless legs | | 2013 | Encounter | MED CTR LABORATORY | MD Pedro Luis [address] | | | | | [address] [place] | [address] [place] | | | | | [place], [place] | [place] [address] | | | | | [address] | [phone] | | | | | [phone] | | | +--------+ + + + [...] 2018 | Visit | | BHUMIKA Ellis [address] | | | | | | [place] | | | | | | [place] [address] | | | | | | [phone] | | | | | | | [...] + | [facility] | [address] | [place], [place] | [phone] | | [facility] | | [address] | | | - LABORATORY | | | | + + + + + | [facility] | [address] | [place], [place] | | | [facility] | | [address] | | | - LABORATORY | | | | + + + + + documented in this encounter Visit Diagnoses + + | Diagnosis | + + | Restless legs Restless legs syndrome (RLS) | + + documented in this encounter"
--- OUTSIDE RECORDS SUMMARY | ~2019-05-07 | XMS | Encounter Summary ---
Demographics + + + | Address | [address] | | | [place] [address] | + + + | Home Phone | | + + + | Preferred Language | Unknown | + + + | Marital Status | | + + + | Confucianism Affiliation | 1041 | + + + | Race | Unknown | + + + | Ethnic Group | Unknown | + + + Author + + + | Author | [facility] | | | and [place] | + + + | Organization | [facility] | | | and [place] [...] Team Providers + +------+ + | Care Station Baggage Agent Name | Role | Phone | + +------+ + | Unknown, Doctor | PCP | | + +------+ + Reason for Visit +---------+ + | Reason | Comments | +---------+ + | Network Operations Analyst | | +---------+ + Encounter Details +--------+ + + + + | Date | Type | Department | Care Team | Description | +--------+ + + + + | 03/07/ | Telephone | [facility] | Brad Bauer, | Network Operations Analyst | | 2019 | | RHEUMATOLOGY [address] | PA-C [address] | | [address] | [facility] | | | | | [facility] | [place] [address] | | | | | [address] | [phone] | | | | | [phone] | | | +--------+ + + + [...] 2018 | Visit | | BHUMIKA Ellis [address] | | | | | | [place] | | | | | | [place] [address] | | | | | | [phone] | | | | | | | [...]
--- OUTSIDE RECORDS SUMMARY | ~2019-05-07 | XMS | Encounter Summary ---
Demographics + + + | Address | [address] | | | [place] [address] | + + + | Home Phone | | + + + | Preferred Language | Unknown | + + + | Marital Status | | + + + | Catholic Affiliation | 1041 | + + + | Race | Unknown | + + + | Ethnic Group | Unknown | + + + Author + + + | Author | [facility] | | | and [place] | + + + | Organization | [facility] | | | and [...] Team Providers + +------+ + | Care Steamblaster Name | Role | Phone | + [...] + + | 09/11/ | Office | [facility] | Chel Henry | Rheumatoid | | 2019 | Visit | RHEUMATOLOGY [address] | BHUMIKA Ellis [address] | arthritis, involving | | | | [address] | [address] | unspecified site, | | | | [place], [place] | [place] [address] | unspecified | | | | [address] | [phone] | rheumatoid factor | | | | [phone] | | presence (HCC) | | | [...] encounter Patient Instructions Patient Instructions Krishan Hall, Watch Assembly Inspector - 03/07/2019 1:30 PM PDTWe hop e that you have experienced exceptional care today and that you found our service to be cour teous and helpful. If you have any questions or need medication refills you can send us a message/request u Spring.me or call our office at [phone]. To reach Alexa ALEXIS use ext [phone] To reach Krishan ALEXIS use ext [phone] If you are unable to reach a [...] can also look at your results on [employer]. If you are experiencing an emergency, please [...] triage nurse please call our office at [phone] ext [phone] To reach the infusion sales service assistant nisa ext. [phone] documented in this encounter Progress Notes Chel Henry PA-C - 03/07/2019 1:30 PM PDTFormatting of this note might be diff erent from the original. Subjective: Patient ID: Radha Howrad is a 48 y.o. female. Rheumatological History [...] SEDRATE Imaging: Laboratory results were reviewed in [facility] as well as chart notes and [...] plan. Patient understan ds that treatment is intermodal dispatcher and if patient fails to continue regimen [...] 2018 | Visit | | BHUMIKA Ellis [address] | | | | | | [place] | | | | | | [place] [address] | | | | | | [phone] | | | | | | | [...]
--- OUTSIDE RECORDS SUMMARY | ~2019-05-07 | XMS | Encounter Summary ---
Demographics + + + | Address | [address] | | | [place] [address] | + + + | Home Phone | | + + + | Preferred Language | Unknown | + + + | Marital Status | | + + + | Mandaeism Affiliation | 1041 | + + + | Race | Unknown | + + + | Ethnic Group | Unknown | + + + Author + + + | Author | [facility] | | | and [place] | + + + | Organization | [facility] | | | and [place] [...] Team Providers + +------+ + | Care Crowd Controller Name | Role | Phone | + [...] [address] | | | | | [place] | [facility] | | | | | [address] | [facility] [address] | | | | | [phone] | [phone] | | | | | | | [...] 2018 | Visit | | BHUMIKA Ellis [address] | | | | | | [facility] | | | | | | [place] [address] | | | | | | [phone] | | | | | | | [...]
[~2019-05-07 07:23] MED LIST changes: +ACTEMRA80 MG/4 ML; +LEXAPRO20 MG PO; +VENTOLIN HFA18 GM; +WELLBUTRIN XL150 MG PO
--- OUTSIDE RECORDS SUMMARY | 2019-05-07 07:26 | XMS ---
PreManage Notification: JAYRO QUEZADA Security Reliability Specialist Events No recent Security Events currently on file CRITERIA MET - [facility] - [facility] - 2 Visits in 30 Days CARE PROVIDERS There are no care providers on record at this time. [facility] has no Care Guidelines for this patient. [facility] MO[facility] NOTE: Visits indicate total known visits. ED/C VISIT TRACKING (12 MO.) [facility] COMPLAINT: - RASH, INFLAMATION 05/05/2019 07:52 [facility] [place] TYPE: Emergency COMPLAINT: - LEFT SIDED FACE TINGLING/SWELLING 07/16/2018 18:14 [facility] [place] TYPE: Emergency COMPLAINT: - COUGH,SORE THROAT DIAGNOSES: - Other lobsterman (current) drug therapy - Allergy status to sulfonamides status - Shortness of breath - Obesity, unspecified - [facility] (current) use of systemic steroids - Viral infection, unspecified - Allergy status to narcotic agent status - Rheumatoid arthritis, unspecified - Unspecified asthma with (acute) exacerbation - Allergy status to analgesic agent status INPATIENT VISIT TRACKING (12 MO.) No inpatient visits to display in this time frame [email or web address]
[2019-05-07] MEDS ORDERED: PREDNISONE20 MG PO (07:58)
[2019-05-07] MEDS ORDERED: CLINDAMYCIN HC300 MG PO (07:58)
== END 2019-05-07 08:15 | disposition home or self-care (01) ==
LOC: ED 07:23
DX: R21 Rash and other nonspecific skin eruption (principal); Z88.2 Allergy status to sulfonamides; Z88.5 Allergy status to narcotic agent; Z88.6 Allergy status to analgesic agent; Z91.018 Allergy to other foods; Z79.899 Other long term (current) drug therapy
CPT/HCPCS: 99282

== ENCOUNTER 2019-09-20 10:41 | Emergency (ER) | payer OTHER ==
[~2019-09-20] VITALS: Ht 172.7 cm; Wt 140.6 kg
[~2019-09-20 10:41] MED LIST changes: +CLINDAMYCIN HC300 MG PO
--- OUTSIDE RECORDS SUMMARY | 2019-09-20 10:44 | XMS ---
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 Freddy VISIT COUNT (12 MO.) 3 KANDICE Hutchins TOTAL 3 NOTE: Visits indicate total known visits. ED/UCC VISIT TRACKING (12 MO.) 09/20/2019 10:41 KANDICE Clifford [place] TYPE: Emergency COMPLAINT: - FLU SYMPTOMS 05/07/2019 07:23 KANDICE Clifford [place] TYPE: Emergency COMPLAINT: - RASH DIAGNOSES: - Other patient assessment coordinator (current) drug therapy - Rash and other nonspecific skin eruption - Allergy status to narcotic agent status - Allergy status to analgesic agent status - Rash and other nonspecific skin eruption - Localized swelling, mass and lump, unspecified - Allergy status to sulfonamides status - Allergy to other foods 05/05/2019 07:52 KANDICE Clifford [place] TYPE: Emergency COMPLAINT: - LEFT SIDED FACE TINGLING/SWELLING DIAGNOSES: - Other patient assessment coordinator (current) drug therapy - Allergy to other foods - Allergy status to narcotic agent status - Other adverse food reactions, not elsewhere classified, initi - Allergy status to sulfonamides status - Rash and other nonspecific skin eruption - Allergy status to analgesic agent status - Unspecified asthma, uncomplicated INPATIENT VISIT TRACKING (12 MO.) No inpatient visits to display in this time frame [email or web address]
[2019-09-20] MEDS ORDERED: PREDNISONE20 MG PO (12:48)
== END 2019-09-20 13:00 | disposition home or self-care (01) ==
LOC: ED 10:41
DX: J18.9 Pneumonia, unspecified organism (principal); J45.909 Unspecified asthma, uncomplicated; Z88.2 Allergy status to sulfonamides; Z88.5 Allergy status to narcotic agent; Z79.899 Other long term (current) drug therapy
CPT/HCPCS: 71045; 94640; 94664; 96372; 99284-25; J1100; J1885